=== PATIENT | male | born 1945 | race Caucasian/White ===

== ENCOUNTER 2016-09-02 16:51 | Observation (INO) | payer MEDICARE, OTHER ==
[~2016-09-02] VITALS: Ht 185.4 cm; Wt 110.0 kg
[~2016-09-02 16:51] MED LIST: EZET10 PO; GLUCTAB PO; LISI-587 PO; NEXI40CA PO; PERC5TAB12 PO; PRIS50TA PO
[2016-09-02 17:23] VITALS: BP 150/98; PULSE 99; RESP 16; TEMP 99.3; O2SAT 96
[2016-09-02] MEDS ORDERED: METF500T PO (18:40)
[2016-09-02] MEDS ORDERED: ZETI10TA5 PO (18:40)
[2016-09-02] MEDS ORDERED: LISI20TA3 PO (18:40)
[2016-09-02] MEDS ORDERED: DESV25TA PO (18:40)
[2016-09-02] MEDS ORDERED: SODIUM CHLORIDE 0.9% FLUSH 5 ML FLUSH IVF PRN ×2 (19:30→21:00)
[2016-09-02 19:32] VITALS: O2SAT 97
--- NOTE | 2016-09-02 19:33 | PD ---
HPI Chief Complaint: Fall Time Seen by Provider: 19:19 Travel History International Travel<30 days: No Contact w/Intl Traveler<30days: No Traveled to known affect area: No History of Present Illness HPI 71 year-old male presents to the emergency department by private transportation for evaluation of left rib pain and headache injury status post non-syncopal slip and fall from his porch; does not recall if he was dizzy but no chest pain or shortness of breath. Patient states he was the edge of the upper step of his porch approximately 6 feet off the ground and he lost his balance and fell backwards landing on his left side and then flipping and headaches had on the right forehead area. Patient denies loss of consciousness. Patient denies any neck pain. Patient's had no upper or lower extremity numbness tingling or weakness. Patient denies any abdominal pain pelvic pain or other injury. Patient states the fall was witnessed by his son. Patient states that EMS was called to his home and the patient was assessed with recommendation to be transported to the hospital which initially he refused. Due to persistent discomfort patient was brought to the emergency room by his son who is not present at the bedside. Patient states he takes no blood thinning agents. Patient does have history of diabetes hypertension dyslipidemia COPD kidney stones with lithotripsy renal stents and prior cholecystectomy. Patient does not report any preceding chest pain dizziness palpitations shortness of breath sweats near syncope or syncope. Patient has eaten today and does not recall symptoms of low blood sugar. Patient rates pain with deep inspiratory effort as 8/10 intensity. Patient reports fall occurred around 5 PM. PFSH Past Medical History Narrative Medical Arthritis anxiety depression lymphoma diabetes hypertension dyslipidemia fibromyalgia COPD kidney stones renal stent lithotripsy cholecystectomy occasional alcohol use nursing notes reviewed Arthritis: Yes (RHEUMATOID) Asthma: No Anxiety: Yes Depression: Yes Heart Rhythm Problems: No Cancer: Yes Cardiovascular Problems: Yes High Cholesterol: Yes Chest Pain: No Congestive Heart Failure: No COPD: No Diabetes: Yes (TYPE 2) Patient Takes Glucophage: Yes Diminished Hearing: No Endocrine: Yes Fibromyalgia: Yes GERD: Yes Genitourinary: Yes (KIDNEY STONES) Hepatitis: No Hiatal Hernia: No Hypertension: Yes Immune Disorder: No Implanted Vascular Access Dvce: No Kidney Stones: No Musculoskeletal: Yes Neurologic: No Psychiatric: Yes Reproductive: No Respiratory: Yes (COPD) Immunizations Current: Yes Renal Failure: No Sleep Apnea: No Thyroid Disease: No Past Surgical History Abdominal Surgery: Yes (REBECCA) AICD: No Cholecystectomy: Yes (1988) Ear Surgery: No Endocrine Surgery: No Eye Surgery: No Genitourinary Surgery: Yes (LITHOTRIPSY, SUBCUTANEOUS SURGERY) Gynecologic Surgery: No Joint Replacement: No Neurologic Surgery: No Oral Surgery: No Pacemaker: No Thoracic Surgery: No Other Surgery: Yes (LITHROTRIPSY/KIDNEY STENTS ') Social History Alcohol Use: Yes (RARELY) Tobacco Use: No (quit 5 years ago) Substance Use: No Allergies-Medications (Allergen,Severity, Reaction): Coded Allergies: Amoxicillin (Verified Allergy, Severe, Anaphylaxis, 09/02/16) Bactrim (Verified Allergy, Severe, SWELLING, RED FACE, 09/02/16) Contrast Media (Verified Allergy, Severe, SWELLING, RED FACE, 09/02/16) must be premed with benedryl and solumedrol Codeine (Verified Adverse Reaction, Intermediate, NAUSEA, VOMITING, ) Reported Meds & Prescriptions Reported Meds & Active Scripts Active Reported Metformin (Metformin HCl) 500 Mg Tab Unknown Dose PO BIDPC With meals Pristiq 24 HR (Desvenlafaxine ER 24 HR) 25 Mg Tab Unknown Dose PO DAILY Lisinopril-Hctz 20-25 Mg Tab Unknown Dose PO DAILY Zetia (Ezetimibe) 10 Mg Tab 10 Mg PO DAILY Review of Systems Except as stated in HPI: all other systems reviewed are Neg General / Constitutional: No: Fever, Chills Eyes: No: Visual changes HENT: Positive: Headaches, Lightheadedness, Neck Pain, No: Congestion, Neck Stiffness Cardiovascular: Positive: Chest Pain or Discomfort Respiratory: Positive: Pleuritic Pain, No: Shortness of Breath Gastrointestinal: No: Nausea, Vomiting, Abdominal Pain Genitourinary: No: Flank Pain Musculoskeletal: No: Myalgias, Arthralgias Skin: No Rash Neurologic: Positive: Headache, No: Weakness, Dizziness, Syncope, Focal Abnormalities, Coordination Problem, Ataxia, Change in Mentation, Paresthesia, Incontinence Psychiatric: No: Anxiety Hematologic/Lymphatic: No: Lymph Node Enlargement Physical Exam Narrative GENERAL: Well-developed well-nourished male in no acute distress no respiratory distress; GCS 15. SKIN: Warm and dry. HEAD: Atraumatic. Normocephalic. No scalp soft tissue swelling hematoma or any abnormalities abrasion laceration or ecchymosis. EYES: Pupils equal and round. No scleral icterus. No injection or drainage. Extra ocular muscles intact. ENT: No nasal bleeding or discharge. Mucous membranes pink and moist. No hemotympanum. NECK: Trachea midline. No JVD. Nontender to direct palpation along the cervical spine no bony step-off cervical collar in place CARDIOVASCULAR: Regular rate and rhythm. Chest wall: Tender to palpation along the left midaxillary chest wall without ecchymosis abrasion crepitus or palpable subcutaneous emphysema no ecchymosis no abrasion or laceration. RESPIRATORY: No accessory muscle use. Clear to auscultation. Breath sounds equal bilaterally. GASTROINTESTINAL: Abdomen soft, non-tender, nondistended. Hepatic and splenic margins not palpable. MUSCULOSKELETAL: Extremities without clubbing, cyanosis, or edema. No obvious deformities. NEUROLOGICAL: Awake and alert. No obvious cranial nerve deficits. Motor grossly within normal limits. Five out of 5 muscle strength in the arms and legs. Normal speech. PSYCHIATRIC: Appropriate mood and affect; insight and judgment normal. Data Data Last Documented VS Vital Signs Date Time Temp Pulse Resp B/P Pulse Ox O2 Delivery O2 Flow Rate FiO2 09/02/16 20:01 68 20 178/100 98 09/02/16 19:53 Room Air 09/02/16 17:23 99.3 Orders Basic Metabolic Panel (Bmp) (09/02/16 19:19) Complete Blood Count With Diff (09/02/16 19:19) Prothrombin Time / Inr (Pt) (09/02/16 19:19) Act Partial Throm Time (Ptt) (09/02/16 19:19) Type And Screen (09/02/16 19:19) Alcohol (Ethanol) (09/02/16 19:19) Urinalysis - C+S If Indicated (09/02/16 19:19) Ct Brain W/O Iv Contrast(Rout) (09/02/16 19:19) Ct Cerv Spine W/O Contrast (09/02/16 19:19) Electrocardiogram (09/02/16 19:19) Apply Cervical Collar (09/02/16 19:19) Blood Glucose (09/02/16 19:19) Iv Access Insert/Monitor (09/02/16 19:19) Ecg Monitoring (09/02/16 19:19) Oximetry (09/02/16 19:19) Oxygen Administration (09/02/16 19:19) Sodium Chloride 0.9% Flush (Ns Flush) (09/02/16 19:30) Troponin I (09/02/16 19:19) Ribs, Uni (W/Exp Cxr-Min 3vw) (09/02/16 ) Potassium Chlor 10 Meq Premix (Kcl 10 Me (09/02/16 20:30) Potassium Chloride (Kcl) (09/02/16 20:45) Acetamin-Hydrocod 325-5 Mg ([place] 5-325 (09/02/16 20:45) Sodium Chlor 0.9% 1000 Ml Inj (Ns 1000 M (09/02/16 20:45) Admit Order (Ed Use Only) (09/02/16 ) ^ Saline Lock (09/02/16 20:56) Resp Oxygen [place] C [place]rat 1-4 L (09/02/16 ) ^ Notify Dr: Other (09/02/16 20:56) Sodium Chloride 0.9% Flush (Ns Flush) (09/02/16 21:00) Sodium Chloride 0.9% Flush (Ns Flush) (09/02/16 21:00) Labs Laboratory Tests Test 09/02/16 19:25 White Blood Count 10.0 TH/MM3 Red Blood Count 5.06 MIL/MM3 Hemoglobin 15.0 GM/DL Hematocrit 43.1 % Mean Corpuscular Volume 85.3 FL Mean Corpuscular Hemoglobin 29.7 PG Mean Corpuscular Hemoglobin 34.9 % Concent Red Cell Distribution Width 14.5 % Platelet Count 168 TH/MM3 Mean Platelet Volume 7.7 FL Neutrophils (%) (Auto) 75.2 % Lymphocytes (%) (Auto) 15.4 % Monocytes (%) (Auto) 7.3 % Eosinophils (%) (Auto) 1.6 % Basophils (%) (Auto) 0.5 % Neutrophils # (Auto) 7.5 TH/MM3 Lymphocytes # (Auto) 1.5 TH/MM3 Monocytes # (Auto) 0.7 TH/MM3 Eosinophils # (Auto) 0.2 TH/MM3 Basophils # (Auto) 0.1 TH/MM3 CBC Comment DIFF FINAL Differential Comment Prothrombin Time 10.5 SEC Prothromb Time International 1.0 RATIO Ratio Activated Partial 25.0 SEC Thromboplast Time Sodium Level 141 MEQ/L Potassium Level 2.5 MEQ/L Chloride Level 100 MEQ/L Carbon Dioxide Level 30.9 MEQ/L Anion Gap 10 MEQ/L Blood Urea Nitrogen 16 MG/DL Creatinine 1.20 MG/DL Estimat Glomerular Filtration 60 ML/MIN Rate Random Glucose 113 MG/DL Calcium Level 8.5 MG/DL Troponin I LESS THAN 0.02 NG/ML Ethyl Alcohol Level LESS THAN 3 MG/DL Blood Type O POSITIVE Antibody Screen NEGATIVE MDM Medical Decision Making Medical Screen Exam Complete: Yes Emergency Medical Condition: Yes Medical Record Reviewed: Yes Interpretation(s) EKG: sinus rhythm rate 98 elevation or injury pattern change noted Laboratory Tests Test 09/02/16 19:25 White Blood Count 10.0 TH/MM3 Red Blood Count 5.06 MIL/MM3 Hemoglobin 15.0 GM/DL Hematocrit 43.1 % Mean Corpuscular Volume 85.3 FL Mean Corpuscular Hemoglobin 29.7 PG Mean Corpuscular Hemoglobin 34.9 % Concent Red Cell Distribution Width 14.5 % Platelet Count 168 TH/MM3 Mean Platelet Volume 7.7 FL Neutrophils (%) (Auto) 75.2 % Lymphocytes (%) (Auto) 15.4 % Monocytes (%) (Auto) 7.3 % Eosinophils (%) (Auto) 1.6 % Basophils (%) (Auto) 0.5 % Neutrophils # (Auto) 7.5 TH/MM3 Lymphocytes # (Auto) 1.5 TH/MM3 Monocytes # (Auto) 0.7 TH/MM3 Eosinophils # (Auto) 0.2 TH/MM3 Basophils # (Auto) 0.1 TH/MM3 CBC Comment DIFF FINAL Differential Comment Prothrombin Time 10.5 SEC Prothromb Time International 1.0 RATIO Ratio Activated Partial 25.0 SEC Thromboplast Time Sodium Level 141 MEQ/L Potassium Level 2.5 MEQ/L Chloride Level 100 MEQ/L Carbon Dioxide Level 30.9 MEQ/L Anion Gap 10 MEQ/L Blood Urea Nitrogen 16 MG/DL Creatinine 1.20 MG/DL Estimat Glomerular Filtration 60 ML/MIN Rate Random Glucose 113 MG/DL Calcium Level 8.5 MG/DL Troponin I LESS THAN 0.02 NG/ML Ethyl Alcohol Level LESS THAN 3 MG/DL Last Impressions Head CT 09/02/161918 Signed Impressions: Service Date/Time: August 19:44 - CONCLUSION: No bleed or other acute intracranial abnormality. Vlad eBdoya MD Cervical Spine CT 09/02/16 1919 Signed Impressions: Service Date/Time: August 19:44 - CONCLUSION: Intact cervical spine. Vlad Bedoya MD Ribs X-Ray 09/02/16 0000 Signed Impressions: Service Date/Time: August 19:27 - CONCLUSION: No perceptible acute left rib fracture. No pneumothorax or other acute cardiopulmonary disease. Vlad Bedoya MD Differential Diagnosis ICH, CHI, arrhythmia, chest wall contusion, lung contusion, pneumothorax, hemothorax, rib fracture, ACS, arrhythmia, uncontrolled diabetes, intra- abdominal viscus injury, renal contusion Narrative Course Cervical collar has been applied IV access obtained specimens collected and sent for resulting imaging studies ordered At 8:[address] cervical spine reveals no acute abnormality cervical collar removed by me Patient informed of CT brain CT cervical spine and x-ray of the ribs results which revealed no acute abnormality. CT brain reveals no bleed or skull fracture acute abnormality CT cervical spine reveals significant degenerative changes but no acute bony abnormalities or cord compression and rib series reveals no obvious rib fracture displaced rib fracture or effusion or pneumothorax. &1 year old male with fall from porch unclear if misstepped-does not recall this , dizziness or weakness no chest pain shortness of breath or focal weakness and denies syncope --however with hypokalemia concern for arrhythmia induced fall-- - CT brain/c-spine and rib films w/o acute abnormality --receiving potassium replacement --will obs for cardiac monitoring while potassium replaced Physician Communication Physician Communication case discussed with Kevyn RENTERIA--obs to Dr Shahrzad Diop obs Diagnosis Primary Impression: Hypokalemia Additional Impressions: Contusion of left chest wall Qualified Code: S20.212A - Contusion of left chest wall, initial encounter Fall Qualified Code: W19.XXXA - Fall, initial encounter Admitting Information Admitting Physician Requests: Observation Sharlene Saha MD Sep 02, 2016 19:33 Sharlene Saha MD Sep 02, 2016 19:33
[2016-09-02 19:39] LABS: AUTOMATED NEUTROPHIL # 7.5 TH/MM3 (1.8-7.7); BASOPHIL # 0.1 TH/MM3 (0-0.2); BASOPHIL % 0.5 % (0.0-2.0); EOSINOPHIL # 0.2 TH/MM3 (0-0.4); EOSINOPHIL % 1.6 % (0.0-4.0); HEMATOCRIT 43.1 % (39.0-51.0); HEMO FLAGS DIFF FINAL; LYMPH % 15.4 % (9.0-44.0); LYMPHOCYTE # 1.5 TH/MM3 (1.0-4.8); MEAN CELL VOLUME 85.3 FL (80.0-100.0); MEAN CORPUSCULAR HEMOGLOBIN 29.7 PG (27.0-34.0); MEAN CORPUSCULAR HGB CONC 34.9 % (32.0-36.0); MONO % 7.3 % (0.0-8.0); NEUT % 75.2 % (16.0-70.0); PLATELET COUNT 168 TH/MM3 (150-450); RED BLOOD COUNT 5.06 MIL/MM3 (4.50-5.90); RED CELL DISTRIBUTION WIDTH 14.5 % (11.6-17.2)
--- NOTE | 2016-09-02 19:58 | RADHPO ---
EXAM DATE/TIME: 09/02/2016 19:27 [facility] COMPARISON: RIBS LEFT(W PA CXR MIN 3VWS), November 25, 2015, 17:01. INDICATIONS : Patient states he fell tonight, anterior left side rib pain. MEDICAL HISTORY : Non Hodgkin's disease. SURGICAL HISTORY : [id number] ENCOUNTER: Initial ACUITY: 1 day PAIN SCORE: 8/10 LOCATION: Left Ribs FINDINGS: Multiple views of the left ribs were performed. There is no evidence of displaced fracture. No dest ructive lesions or areas of periosteal thickening are seen. Expiratory view of the chest is negative for pneumothorax. The mediastinal structures are midline. Right internal jugular [id number] catheter are again seen with tip in the superior vena cava. CONCLUSION: No perceptible acute left rib fracture. No pneumothorax or other acute cardiopulmonary disease. Vlad Bedoya MD on September 02, 2016 at 19:56 Board Certified Radiologist. This report was verified electronically.
[2016-09-02 19:59] LABS: PROTHROMBIN TIME - PATIENT 10.5 SEC (9.8-11.6)
[2016-09-02 20:01] VITALS: BP 178/100; PULSE 68; RESP 20; O2SAT 98
[2016-09-02 20:14] LABS: ANION GAP 10 MEQ/L (5-15); BICARBONATE 30.9 MEQ/L (21.0-32.0); BLOOD UREA NITROGEN 16 MG/DL (7-18); CHLORIDE 100 MEQ/L (98-107); GLOMERULAR FILTRATION RATE 60 ML/MIN (>89); SODIUM (NA) 141 MEQ/L (136-145)
[2016-09-02 20:15] LABS: POTASSIUM 2.5 MEQ/L (3.5-5.1)
--- NOTE | 2016-09-02 20:28 | RADHPO ---
EXAM DATE/TIME: 09/02/2016 19:44 [facility] COMPARISON: CT CERVICAL SPINE W/O CONTRAST, January 24, 2015, 22:13. INDICATIONS : Trauma. Fall. RADIATION DOSE: 26.78 CTDIvol (mGy) MEDICAL HISTORY : Diabetes mellitus type 2. Hypertension. Chronic obstructive pulmonary disease. SURGICAL HISTORY : None. ENCOUNTER: Initial ACUITY: 1 day PAIN SCALE: 0/10 LOCATION: neck TECHNIQUE: Volumetric scanning of the cervical spine was performed. Multiplanar reconstructions in the sagittal, coronal and oblique axial planes were performed. Using automated exposure control and adjustment o f the mA and/or kV according to patient size, radiation dose was kept as low as reasonably achievable to obtain optimal diagnostic quality images. FINDINGS: No fracture or subluxation of the cervical spine. Vertebral bodies have normal height. Mild disc space narrowing with mild uncovertebral and facet osteoarthritis again seen at C5/C6, C6/C7 and C7/T1. Juxtavertebral soft tissues are within normal limits. No evidence of epidural hematoma. CONCLUSION: Intact cervical spine. Vlad Bedoya MD on September 02, 2016 at 20:25 Board Certified Radiologist. This report was verified electronically.
--- NOTE | 2016-09-02 20:29 | RADHPO ---
EXAM DATE/TIME: 09/02/2016 19:44 [facility] COMPARISON: CT BRAIN W/O CONTRAST, January 24, 2015, 22:13. INDICATIONS : Trauma. Fall. RADIATION DOSE: 66.14 CTDIvol (mGy) MEDICAL HISTORY : Hypertension. Diabetes mellitus type 2. Chronic obstructive pulmonary disease. SURGICAL HISTORY : None. ENCOUNTER: Initial ACUITY: 1 day PAIN SCALE: 8/10 LOCATION: Left parietal TECHNIQUE: Multiple contiguous axial images were obtained of the head. Using automated exposure control and adj ustment of the mA and/or kV according to patient size, radiation dose was kept as low as reasonably a chievable to obtain optimal diagnostic quality images. FINDINGS: CEREBRUM: The ventricles are normal for age. No evidence of midline shift, mass lesion, hemorrhage or acute in farction. No extra-axial fluid collections are seen. POSTERIOR FOSSA: The cerebellum and brainstem are intact. The 4th ventricle is midline. The cerebellopontine angle i s unremarkable. EXTRACRANIAL: The visualized portion of the orbits is intact. SKULL: The calvaria is intact. No evidence of skull fracture. CONCLUSION: No bleed or other acute intracranial abnormality. Vlad Bedoya MD on September 02, 2016 at 20:27 Board Certified Radiologist. This report was verified electronically.
[2016-09-02] MEDS ORDERED: POTASSIUM CHLOR 10 MEQ PREMIX 100 ML IV ONE (20:30)
[2016-09-02] MEDS ORDERED: POTASSIUM CHLORIDE 20 MEQ CONTROLLED RELEASE TAB PO ONE (20:45)
[2016-09-02] MEDS ORDERED: SODIUM CHLOR 0.9% 1000 ML INJ 1,000 ML IV SCH ×2 (20:45→21:03)
[2016-09-02] MEDS ORDERED: ACETAMINOPHEN/HYDROcodone 325 MG/5 MG TAB PO ONE (20:45)
[2016-09-02] MEDS ORDERED: SODIUM CHLORIDE 0.9% FLUSH 5 ML FLUSH IVF SCH (21:00)
[2016-09-02] MEDS ORDERED: NALOXONE HCL 0.4 MG/ML AMP IV PRN (21:15)
[2016-09-02] MEDS ORDERED: SODIUM CHLORIDE 0.9% FLUSH 5 ML FLUSH FLUSH PRN (21:15)
[2016-09-02] MEDS ORDERED: ACETAMINOPHEN 325 MG TAB PO PRN (21:15)
[2016-09-02] MEDS ORDERED: ONDANSETRON HCL 4 MG/2 ML VIAL IVP PRN (21:15)
[2016-09-02 21:38] VITALS: BP 214/113; PULSE 96; RESP 18; O2SAT 96
[2016-09-02] MEDS ORDERED: ENALAPRILAT 1.25 MG/ML VIAL IV PUSH ONE (22:00)
[2016-09-02 22:25] VITALS: BP 191/110
[2016-09-02 22:51] VITALS: BP 154/102; PULSE 92; RESP 18
[2016-09-03] MEDS ORDERED: SODIUM CHLORIDE 0.9% FLUSH 5 ML FLUSH FLUSH SCH (09:00)
--- NOTE | 2016-09-03 22:48 | EKG ---
Date Performed: 09/02/2016 Time Performed: 20:01:58 PTAGE: 71 years EKG: Sinus rhythm with PACs. Left axis deviation Possible left ventricular hypertrophy Anterolateral ST-T changes are probably due to ventricular hypertrophy Abnormal ECG PREVIOUS TRACING : 01/24/2015 23.41 DOCTOR: Hunter Mittal Interpretating Date/Time 09/03/2016 22:44:40
== END 2016-09-02 23:00 | disposition left against medical advice (07) ==
LOC: PHED 16:51 → PHEDA 20:57
PROVIDERS: ADMIT Family Medicine; ATTEND Family Medicine
DX: E87.6 Hypokalemia (principal); S20.212A Contusion of left front wall of thorax, initial encounter; R51 Headache; I10 Essential (primary) hypertension; E11.9 Type 2 diabetes mellitus without complications; E78.00 Pure hypercholesterolemia, unspecified; E78.5 Hyperlipidemia, unspecified; M06.9 Rheumatoid arthritis, unspecified; F41.8 Other specified anxiety disorders; M79.7 Fibromyalgia; J44.9 Chronic obstructive pulmonary disease, unspecified; W10.8XXA Fall (on) (from) other stairs and steps, initial encounter; Y92.007 Garden or yard of unspecified non-institutional (private) residence as the place of occurrence of the external cause; Z85.9 Personal history of malignant neoplasm, unspecified; Z87.891 Personal history of nicotine dependence; R94.31 Abnormal electrocardiogram [ECG] [EKG]
CPT/HCPCS: 70450; 71101; 72125; 80048; 80320; 84484; 85025; 85610; 85730; 86850; 86900; 86901; 93005; 96374; 96375; 99285; G0378; J3480; J7030

== ENCOUNTER 2016-10-02 17:58 | Emergency (ER) | payer MEDICARE, OTHER ==
[~2016-10-02] VITALS: Ht 185.4 cm; Wt 108.8 kg
[~2016-10-02 17:58] MED LIST changes: +DESV25TA PO; -EZET10 PO; -GLUCTAB PO; -LISI-587 PO; +LISI20TA3 PO; +METF500T PO; -NEXI40CA PO; -PERC5TAB12 PO; -PRIS50TA PO; +ZETI10TA5 PO
[2016-10-02 18:02] VITALS: BP 160/102; PULSE 98; RESP 20; O2SAT 96
[2016-10-02] MEDS ORDERED: SODIUM CHLOR 0.9% 1000 ML INJ 1,000 ML IV SCH (18:27)
[2016-10-02] MEDS ORDERED: MORPHINE SULFATE 4 MG/ML INJ IV PUSH ONE (18:30)
[2016-10-02] MEDS ORDERED: SODIUM CHLORIDE 0.9% FLUSH 5 ML FLUSH IVF PRN (18:30)
--- NOTE | 2016-10-02 18:34 | PD ---
HPI Chief Complaint: Flank/Kidney Pain Time Seen by Provider: 18:15 Travel History International Travel<30 days: No Contact w/Intl Traveler<30days: No Traveled to known affect area: No History of Present Illness HPI Patient is a 71-year-old male who presents to emergency room with complaints of right-sided flank pain which radiates to his right going. Patient reports that he has been having symptoms since last night, reports that these symptoms are intermittent in nature. Patient reports that he has history of kidney stones in the past, reports that symptoms today feel exactly similar to when he has had his prior stones. Patient reports that he has noticed increased hematuria, dysuria, urinary urgency and frequency. Patient with no fevers or chills. Patient denies nausea or vomiting. Reports that he has had increased symptoms tonight. Patient reports that he has passed kidney stones in the past; he has also required urological intervention for his stones PFSH Past Medical History Hx Anticoagulant Therapy: No Arthritis: Yes (RHEUMATOID) Asthma: No Anxiety: Yes Depression: Yes Heart Rhythm Problems: No Cancer: Yes Cardiovascular Problems: Yes (HTN, CHOL) High Cholesterol: Yes Chest Pain: No Congestive Heart Failure: No COPD: No Diabetes: Yes Patient Takes Glucophage: Yes (METFORMIN) Diminished Hearing: No Endocrine: Yes Fibromyalgia: Yes GERD: Yes Genitourinary: Yes (KIDNEY STONES) Hepatitis: No Hiatal Hernia: No Hypertension: Yes Immune Disorder: No Implanted Vascular Access Dvce: No Kidney Stones: No Musculoskeletal: Yes Neurologic: No Psychiatric: Yes Reproductive: No Respiratory: Yes (COPD) Immunizations Current: Yes Renal Failure: No Sleep Apnea: No Thyroid Disease: No Influenza Vaccination: Yes Past Surgical History Abdominal Surgery: Yes (REBECCA) AICD: No Cholecystectomy: Yes (1988) Ear Surgery: No Endocrine Surgery: No Eye Surgery: No Genitourinary Surgery: Yes (LITHOTRIPSY, SUBCUTANEOUS SURGERY) Gynecologic Surgery: No Joint Replacement: No Neurologic Surgery: No Oral Surgery: No Pacemaker: No Thoracic Surgery: No Tonsillectomy: Yes Other Surgery: Yes (LITHROTRIPSY/KIDNEY STENTS ') Social History Alcohol Use: Yes (RARELY) Tobacco Use: No (quit 5 years ago) Substance Use: No Allergies-Medications (Allergen,Severity, Reaction): Coded Allergies: Amoxicillin (Verified Allergy, Severe, Anaphylaxis, 10/02/16) Bactrim (Verified Allergy, Severe, SWELLING, RED FACE, 10/02/16) Contrast Media (Verified Allergy, Severe, SWELLING, RED FACE, 10/02/16) must be premed with benedryl and solumedrol Codeine (Verified Adverse Reaction, Intermediate, NAUSEA, VOMITING, ) Reported Meds & Prescriptions Reported Meds & Active Scripts Active Reported Metformin (Metformin HCl) 500 Mg Tab Unknown Dose PO DAILY With meals Pristiq 24 HR (Desvenlafaxine ER 24 HR) 25 Mg Tab Unknown Dose PO DAILY Lisinopril-Hctz 20-25 Mg Tab Unknown Dose PO DAILY Zetia (Ezetimibe) 10 Mg Tab 10 Mg PO DAILY Review of Systems General / Constitutional: No: Fever Eyes: No: Visual changes HENT: No: Headaches Cardiovascular: No: Chest Pain or Discomfort Respiratory: No: Shortness of Breath Gastrointestinal: Positive: Other (right-sided flank pain), No: Nausea, Vomiting, Abdominal Pain Genitourinary: Positive: Urgency, Frequency, Dysuria, Hematuria, Hesitancy Musculoskeletal: No: Pain Skin: No Rash Neurologic: No: Weakness Psychiatric: No: Depression Endocrine: No: Polydipsia Hematologic/Lymphatic: No: Easy Bruising Physical Exam Narrative GENERAL: No acute distress, nontoxic SKIN: Warm and dry. HEAD: Atraumatic. Normocephalic. ENT: No nasal bleeding or discharge. Mucous membranes pink and moist. NECK: Trachea midline. No JVD. CARDIOVASCULAR: Regular rate and rhythm. No murmur appreciated. RESPIRATORY: No accessory muscle use. Clear to auscultation. Breath sounds equal bilaterally. GASTROINTESTINAL: Abdomen soft, non-tender, nondistended. Patient with right- sided flank pain MUSCULOSKELETAL: No obvious deformities. No clubbing. No cyanosis. No edema. NEUROLOGICAL: Awake and alert. No obvious cranial nerve deficits. Motor grossly within normal limits. Normal speech. PSYCHIATRIC: Appropriate mood and affect; insight and judgment normal. Data Data Last Documented VS Vital Signs Date Time Temp Pulse Resp B/P Pulse Ox O2 Delivery O2 Flow Rate FiO2 10/02/16 18:02 98 20 160/102 96 Orders Complete Blood Count With Diff (10/02/16 18:27) Comprehensive Metabolic Panel (10/02/16 18:27) Lipase (10/02/16 18:27) Prothrombin Time / Inr (Pt) (10/02/16 18:27) Act Partial Throm Time (Ptt) (10/02/16 18:) Urinalysis - C+S If Indicated (10/02/16:) Ct Abd/Pel W/O Iv Contrast (10/02/16 18:) Iv Access Insert/Monitor (10/02/16 18:) Morphine Inj (Morphine Inj) (10/02/16 18:30) Sodium Chlor 0.9% 1000 Ml Inj (Ns 1000 M (10/02/16 18:) Sodium Chloride 0.9% Flush (Ns Flush) (10/02/16 18:30) MDM Medical Decision Making Medical Screen Exam Complete: Yes Emergency Medical Condition: Yes Interpretation(s) Vital Signs Date Time Temp Pulse Resp B/P Pulse Ox O2 Delivery O2 Flow Rate FiO2 10/02/16 18:02 98 20 160/102 96 Differential Diagnosis Nephrolithiasis, pyelonephritis, cystitis Narrative Course Patient is a 71-year-old male who presents to emergency room with complaints of right-sided flank pain which radiates to his groin. Patients symptoms have been intermittent since last night, reports that symptoms are getting progressively worse. Patient reports history of kidney stones in the past, reports the symptoms feel exactly the same as when he has had his previous kidney stones. Labs, UA, CAT scan the abdomen pelvis without IV contrast ordered for further evaluation symptoms. Will give patient IV fluids as well as morphine for pain. Patient has tolerated morphine in the past. Care of patient signed out to care of Dr. Raymond at change of shift Anita Lewis DO Oct 02, 2016 18:34
[2016-10-02 18:48] LABS: BASOPHIL % 0.4 % (0.0-2.0); EOSINOPHIL # 0.1 TH/MM3 (0-0.4); EOSINOPHIL % 1.9 % (0.0-4.0); HEMATOCRIT 38.4 % (39.0-51.0); HEMO FLAGS DIFF FINAL; LYMPH % 17.5 % (9.0-44.0); MEAN CELL VOLUME 87.5 FL (80.0-100.0); MEAN CORPUSCULAR HGB CONC 34.3 % (32.0-36.0); MONO % 8.9 % (0.0-8.0); NEUT % 71.3 % (16.0-70.0); PLATELET COUNT 143 TH/MM3 (150-450); RED BLOOD COUNT 4.39 MIL/MM3 (4.50-5.90); RED CELL DISTRIBUTION WIDTH 14.1 % (11.6-17.2); WHITE BLOOD COUNT 5.6 TH/MM3 (4.0-11.0)
[2016-10-02 18:59] LABS: CHLORIDE 105 MEQ/L (98-107); SODIUM (NA) 143 MEQ/L (136-145)
[2016-10-02 19:03] LABS: ANION GAP 10 MEQ/L (5-15); APTT (PATIENT) 25.3 SEC (24.3-30.1); BICARBONATE 27.7 MEQ/L (21.0-32.0); INTERNATIONAL NORMALIZED RATIO 0.9 RATIO; PROTHROMBIN TIME - PATIENT 10.4 SEC (9.8-11.6)
[2016-10-02 19:04] LABS: BLOOD UREA NITROGEN 12 MG/DL (7-18)
[2016-10-02 19:06] LABS: ALT (GPT) 19 U/L (12-78); AST (GOT) 11 U/L (15-37)
[2016-10-02 19:07] LABS: GLOMERULAR FILTRATION RATE 60 ML/MIN (>89)
[2016-10-02 19:08] LABS: TOTAL BILIRUBIN ADULT 0.4 MG/DL (0.2-1.0)
[2016-10-02 19:09] LABS: ALKALINE PHOSPHATASE 82 U/L (45-117)
[2016-10-02 19:34] LABS: GLUCOSE,URINE NEG (NEG); KETONE, URINE NEG (NEG); NITRITE,URINE NEG (NEG)
--- NOTE | 2016-10-02 19:34 | RADHPO ---
EXAM DATE/TIME: 10/02/2016 18:49 [facility] COMPARISON: No previous studies available for comparison. INDICATIONS : Right flank pain since last night. ORAL CONTRAST: No oral contrast ingested. RADIATION DOSE: 24.85 CTDIvol (mGy) MEDICAL HISTORY : Renal calculi. diabetes SURGICAL HISTORY : Cholecystectomy. litotripsy, kidney stent placement ENCOUNTER: Initial ACUITY: 1 day PAIN SCALE: 8/10 LOCATION: Right flank TECHNIQUE: Volumetric scanning of the abdomen and pelvis was performed. Using automated exposure control and ad justment of the mA and/or kV according to patient size, radiation dose was kept as low as reasonably achievable to obtain optimal diagnostic quality images. FINDINGS: Lung bases are clear. No acute findings in the liver, spleen, adrenals, kidneys or pancreas. Tiny rosi ateral nonobstructing renal calcifications again noted similar to 2014. No hydronephrosis or obstruct linda uropathy. No ureteral or bladder calculi are seen. There is no bowel obstruction. No free air or free fluid. No adenopathy. Postoperative cholecystectom y. CONCLUSION: 1. No acute findings. Tiny nonobstructing bilateral renal calcifications similar to prior study. Prev ious cholecystectomy. Andrea Gallardo MD on October 02, 2016 at 19:27 Board Certified Radiologist. This report was verified electronically.
[2016-10-02 19:53] LABS: BLOOD, URINE MOD (NEG)
[2016-10-02 20:04] LABS: METHOD OF COLLECTION VOIDED; URINE COLOR STRAW (YELLW/STRAW); WBC, URINE 0-2 /hpf (0-5)
[2016-10-02 20:05] LABS: COMMENT (UR) CULT NOT INDICATED; CULTURE IF INDICATED CULT NOT INDICATED; RBC, URINE 15-19 /hpf (0-3); SQUAMOUS EPITHELIAL CELL URINE 0-3 /hpf (0-5)
[2016-10-02] MEDS ORDERED: POTASSIUM CHLORIDE 20 MEQ CONTROLLED RELEASE TAB PO ONE (20:30)
[2016-10-02] MEDS ORDERED: ZOFR4TAB PO (20:33)
[2016-10-02] MEDS ORDERED: CIPR-9 PO (20:33)
[2016-10-02] MEDS ORDERED: HYDR-3533 PO (20:33)
--- NOTE | 2016-10-02 20:34 | PD ---
Physical Exam Time Seen by Provider: 20:[address] Lewis left this patient with me to check the CT scan of the abdomen/pelvis and make a disposition. Data Data Last Documented VS Vital Signs Date Time Temp Pulse Resp B/P Pulse Ox O2 Delivery O2 Flow Rate FiO2 10/02/16 20:08 18 10/02/16 18:02 98 160/102 96 Orders Complete Blood Count With Diff (10/02/16 18:) Comprehensive Metabolic Panel (10/02/16 18:) Lipase (10/02/16 18:) Prothrombin Time / Inr (Pt) (10/02/16:) Act Partial Throm Time (Ptt) (10/02/16 18:) Urinalysis - C+S If Indicated (10/02/16) Ct Abd/Pel W/O Iv Contrast (10/02/16 18:27) Iv Access Insert/Monitor (10/02/16 18:27) Morphine Inj (Morphine Inj) (10/02/16 18:30) Sodium Chlor 0.9% 1000 Ml Inj (Ns 1000 M (10/02/16 18:27) Sodium Chloride 0.9% Flush (Ns Flush) (10/02/16 18:30) Potassium Chloride (Kcl) (10/02/16 20:30) Labs Laboratory Tests Test 10/02/16 10/02/16 18:35 19:25 White Blood Count 5.6 TH/MM3 Red Blood Count 4.39 MIL/MM3 Hemoglobin 13.2 GM/DL Hematocrit 38.4 % Mean Corpuscular Volume 87.5 FL Mean Corpuscular Hemoglobin 30.0 PG Mean Corpuscular Hemoglobin 34.3 % Concent Red Cell Distribution Width 14.1 % Platelet Count 143 TH/MM3 Mean Platelet Volume 7.7 FL Neutrophils (%) (Auto) 71.3 % Lymphocytes (%) (Auto) 17.5 % Monocytes (%) (Auto) 8.9 % Eosinophils (%) (Auto) 1.9 % Basophils (%) (Auto) 0.4 % Neutrophils # (Auto) 4.0 TH/MM3 Lymphocytes # (Auto) 1.0 TH/MM3 Monocytes # (Auto) 0.5 TH/MM3 Eosinophils # (Auto) 0.1 TH/MM3 Basophils # (Auto) 0.0 TH/MM3 CBC Comment DIFF FINAL Differential Comment Prothrombin Time 10.4 SEC Prothromb Time International 0.9 RATIO Ratio Activated Partial 25.3 SEC Thromboplast Time Sodium Level 143 MEQ/L Potassium Level 3.0 MEQ/L Chloride Level 105 MEQ/L Carbon Dioxide Level 27.7 MEQ/L Anion Gap 10 MEQ/L Blood Urea Nitrogen 12 MG/DL Creatinine 1.20 MG/DL Estimat Glomerular Filtration 60 ML/MIN Rate Random Glucose 170 MG/DL Calcium Level 8.3 MG/DL Total Bilirubin 0.4 MG/DL Aspartate Amino Transf 11 U/L (AST/SGOT) Alanine Aminotransferase 19 U/L (ALT/SGPT) Alkaline Phosphatase 82 U/L Total Protein 6.6 GM/DL Albumin 3.2 GM/DL Lipase 161 U/L Urine Collection Type VOIDED Urine Color STRAW Urine Turbidity CLEAR Urine pH 6.0 Urine Specific [place] 1.016 Urine Protein 100 mg/dL Urine Glucose (UA) NEG mg/dL Urine Ketones NEG mg/dL Urine Occult Blood MOD Urine Nitrite NEG Urine Bilirubin NEG Urine Leukocyte Esterase NEG Urine RBC 15-19 /hpf Urine WBC 0-2 /hpf Urine Squamous Epithelial 0-3 /hpf Cells Microscopic Urinalysis Comment CULT NOT INDICATED MDM Medical Record Reviewed: Yes Supervised Visit with MISHEL: Yes Interpretation(s) The CBC is essentially normal. The urine shows 100 protein, moderate occult blood with 15-19 red cells and is otherwise normal and culture is not indicated. The complete metabolic profile shows a potassium of 3.0, GFR of 60, glucose 170, calcium 8.3 and albumen 3.2 but is otherwise unremarkable. The lipase is normal. The CT abdomen and pelvis shows no acute findings, there are tiny nonobstructing bilateral renal calcifications similar to a prior study. Differential Diagnosis Urinary tract infection, right ureteral stone, right ureteral stonepassed Narrative Course The patient feels that he has an infection. He does have dysuria and frequency. The patient will be given Cipro along with Lortab 5 and Zofran. He is to follow-up with his primary care physician. It is now 0828 and the patient does not feel any pain. Impressions: Right ureteral stonepassed, possible cystitis Diagnosis Primary Impression: Cystitis Additional Impression: Right ureteral stone Additional Instruction: You probably have had a stone that he passed. Nevertheless, we will put him on Cipro, one tablet twice daily for 10 days. We will also give you Lortab 5 for pain along with Zofran for nausea. Do not drink alcohol or drive on the Lortab 5. Follow-up with your primary care physician next week and increase her liquid intake. Med/Other Pt SpecificInfo: Prescription(s) given Scripts Ciprofloxacin (Cipro)500 Mg [id number] Mg PO BID 10 Days Ref 0 Prov:Cameron Raymond MD 10/02/16 Ondansetron (Zofran)4 Mg Tab4 Mg PO Q6HR PRN (NAUSEA OR VOMITING) #20 TAB Ref 0 Prov:Cameron Raymond MD 10/02/16 Hydrocodone-Acetaminophen (Lortab)5-325 Mg Tab1 Tab PO Q4H PRN (PAIN) #20 TAB Ref 0 Prov:Cameron Raymond MD 10/02/16 Disposition: 01 DISCHARGE HOME Condition: Stable Cameron Raymond MD Oct 02, 2016 20:34
[2016-10-02 20:38] VITALS: BP 184/93; PULSE 92; RESP 16; O2SAT 95
== END 2016-10-02 20:50 | disposition home or self-care (01) ==
LOC: PHEFT 17:58
DX: N30.90 Cystitis, unspecified without hematuria (principal); N20.1 Calculus of ureter; F41.9 Anxiety disorder, unspecified; I10 Essential (primary) hypertension; E78.00 Pure hypercholesterolemia, unspecified; E11.9 Type 2 diabetes mellitus without complications; Z79.4 Long term (current) use of insulin
CPT/HCPCS: 74176; 80053; 81001; 83690; 85025; 85610; 85730; 96361; 96374; 99284; J2270; J7030

== ENCOUNTER 2017-03-08 16:21 | Inpatient (IN) | payer MEDICARE, OTHER ==
[2017-03-08] VITALS (12 sets, daily range): BP systolic 78–146; BP diastolic 56–89; PULSE 90–128; RESP 18–22; TEMP 97.7–98.8; O2SAT 93–98
[~2017-03-08] VITALS: Ht 188 cm; Wt 115.4 kg
[~2017-03-08 16:21] MED LIST changes: +CIPR-9 PO; +HYDR-3533 PO; +ZOFR4TAB PO
[2017-03-08] MEDS ORDERED: PANTOPRAZOLE SODIUM 40 MG VIAL IVP ONE (16:45)
[2017-03-08] MEDS ORDERED: SODIUM CHLORIDE 0.9% FLUSH 10 ML FLUSH IVF PRN (16:45)
[2017-03-08] MEDS ORDERED: ONDANSETRON HCL 4 MG/2 ML VIAL IVP ONE (16:45)
[2017-03-08] MEDS ORDERED: SODIUM CHLOR 0.9% 1000 ML INJ 1,000 ML IV ONE (16:45)
[2017-03-08] MEDS ORDERED: POTA-163 PO (16:52)
--- NOTE | 2017-03-08 16:56 | PD ---
HPI . Chest pain Chief Complaint: Chest Pain Time Seen by Provider: 16:35 Travel History International Travel<30 days: No Contact w/Intl Traveler<30days: No Traveled to known affect area: No History of Present Illness HPI Patient presents with a chief complaint of chest pain. Onset was about 30 minutes ago. He describes his chest pain as a thumping patient. Symptoms started while he was shopping for a [employer]. He states that his symptoms are spontaneously improving. His symptoms have been associated with shortness of breath and diaphoresis but no nausea. Discomfort is rated 8/10. The patient denies any recent illnesses involving vomiting or diarrhea. He has not noted any blood in his stool. PFSH Past Medical History Hx Anticoagulant Therapy: No Arthritis: Yes (RHEUMATOID) Asthma: No Anxiety: Yes Depression: Yes Heart Rhythm Problems: No Cancer: Yes Cardiovascular Problems: Yes (HTN, CHOL) High Cholesterol: Yes Chest Pain: No Congestive Heart Failure: No COPD: No Diabetes: Yes Diminished Hearing: No Endocrine: Yes Fibromyalgia: Yes GERD: Yes Genitourinary: Yes (KIDNEY STONES) Hepatitis: No Hiatal Hernia: No Hypertension: Yes Immune Disorder: No Implanted Vascular Access Dvce: No Kidney Stones: No Musculoskeletal: Yes Neurologic: No Psychiatric: Yes Reproductive: No Respiratory: Yes (COPD) Immunizations Current: Yes Renal Failure: No Sleep Apnea: No Thyroid Disease: No Past Surgical History Abdominal Surgery: Yes (REBECCA) AICD: No Cholecystectomy: Yes (1988) Ear Surgery: No Endocrine Surgery: No Eye Surgery: No Genitourinary Surgery: Yes (LITHOTRIPSY, SUBCUTANEOUS SURGERY) Gynecologic Surgery: No Joint Replacement: No Neurologic Surgery: No Oral Surgery: No Pacemaker: No Thoracic Surgery: No Tonsillectomy: Yes Other Surgery: Yes (LITHROTRIPSY/KIDNEY STENTS ) Social History Alcohol Use: Yes (RARELY) Tobacco Use: No (quit 5 years ago) Substance Use: No Allergies-Medications (Allergen,Severity, Reaction): Coded Allergies: Amoxicillin (Verified Allergy, Severe, Anaphylaxis, 10/02/16) Bactrim (Verified Allergy, Severe, SWELLING, RED FACE, 10/02/16) Contrast Media (Verified Allergy, Severe, SWELLING, RED FACE, 10/02/16) must be premed with benedryl and solumedrol Codeine (Verified Adverse Reaction, Intermediate, NAUSEA, VOMITING, ) Reported Meds & Prescriptions Reported Meds & Active Scripts Active Reported Potassium Chloride ER (Potassium Chloride) 20 Meq Tab 20 Meq PO BID Metformin (Metformin HCl) 500 Mg Tab Unknown Dose PO DAILY With meals Pristiq 24 HR (Desvenlafaxine ER 24 HR) 25 Mg Tab Unknown Dose PO DAILY Lisinopril-Hctz 20-25 Mg Tab Unknown Dose PO DAILY Zetia (Ezetimibe) 10 Mg Tab 10 Mg PO DAILY Review of Systems Except as stated in HPI: all other systems reviewed are Neg General / Constitutional: Positive: Other (diaphoresis) Cardiovascular: Positive: Chest Pain or Discomfort, Palpitations Respiratory: Positive: Shortness of Breath Gastrointestinal: No: Nausea, Vomiting, Diarrhea, Abdominal Pain Physical Exam Narrative GENERAL: Patient is pale and diaphoretic. He is lucid. SKIN: Pale and diaphoretic.. HEAD: Atraumatic. Normocephalic. EYES: Pupils equal and round. Extraocular movements are intact. ENT: No nasal bleeding or discharge. Mucous membranes pink and moist. NECK: Trachea midline. Neck is supple. CARDIOVASCULAR: Regular rhythm. Tachycardia. Monitor and EKG indicated a sinus tachycardia. RESPIRATORY: No accessory muscle use. His lungs sound clear. GASTROINTESTINAL: Abdomen soft, non-tender, nondistended. No pulsatile abdominal mass. RECTAL: Brown stool with no mass palpated. MUSCULOSKELETAL: No obvious deformities. No edema. NEUROLOGICAL: Awake and alert. No obvious cranial nerve deficits. Motor grossly within normal limits. Normal speech. PSYCHIATRIC: Appropriate mood and affect; insight and judgment normal. Data Data Last Documented VS Vital Signs Date Time Temp Pulse Resp B/P Pulse Ox O2 Delivery O2 Flow Rate FiO2 03/08/17 18:16 106 20 107/65 96 Nasal Cannula 2 03/08/17 17:46 97.7 Orders Electrocardiogram (03/08/17 16:35) Ckmb (Isoenzyme) Profile (03/08/17 16:35) Complete Blood Count With Diff (03/08/17 16:35) Comprehensive Metabolic Panel (03/08/17 16:35) D-Dimer (03/08/17 16:35) Magnesium (Mg) (03/08/17 16:35) Prothrombin Time / Inr (Pt) (03/08/17 16:35) Act Partial Throm Time (Ptt) (03/08/17 16:35) Troponin I (03/08/17 16:35) Chest, Single Ap (03/08/17 16:35) Ecg Monitoring (03/08/17 16:35) Iv Access Insert/Monitor (03/08/17 16:35) Oximetry (03/08/17 16:35) Oxygen Administration (03/08/17 16:35) Sodium Chloride 0.9% Flush (Ns Flush) (03/08/17 16:45) Sodium Chlor 0.9% 1000 Ml Inj (Ns 1000 M (03/08/17 16:45) Type And Screen (03/08/17 16:44) Ondansetron Inj (Zofran Inj) (03/08/17 16:45) Pantoprazole Inj (Protonix Inj) (03/08/17 16:45) Ct Abd/Pel W/O Iv Contrast (03/08/17 16:44) Sodium Chlor 0.9% 1000 Ml Inj (Ns 1000 M (03/08/17 17:15) Lactic Acid (03/08/17 18:44) Admit Order (Ed Use Only) (03/08/17 18:45) Consult Grant Administrator (03/08/17 ) Consult Gastroenterology (03/08/17 ) Labs Laboratory Tests Test 03/08/17 14:30 White Blood Count 10.7 TH/MM3 Red Blood Count 5.18 MIL/MM3 Hemoglobin 15.0 GM/DL Hematocrit 45.8 % Mean Corpuscular Volume 88.5 FL Mean Corpuscular Hemoglobin 29.0 PG Mean Corpuscular Hemoglobin 32.8 % Concent Red Cell Distribution Width 15.5 % Platelet Count 123 TH/MM3 Mean Platelet Volume 8.8 FL Neutrophils (%) (Auto) 64.5 % Lymphocytes (%) (Auto) 23.6 % Monocytes (%) (Auto) 8.3 % Eosinophils (%) (Auto) 1.4 % Basophils (%) (Auto) 2.2 % Neutrophils # (Auto) 7.0 TH/MM3 Lymphocytes # (Auto) 2.5 TH/MM3 Monocytes # (Auto) 0.9 TH/MM3 Eosinophils # (Auto) 0.1 TH/MM3 Basophils # (Auto) 0.2 TH/MM3 CBC Comment AUTO DIFF Differential Comment AUTO DIFF CONFIRMED Prothrombin Time 10.1 SEC Prothromb Time International 0.9 RATIO Ratio Activated Partial 20.8 SEC Thromboplast Time D-Dimer Quantitative (PE/DVT) 0.40 MG/L FEU Sodium Level 140 MEQ/L Potassium Level 4.2 MEQ/L Chloride Level 107 MEQ/L Carbon Dioxide Level 21.4 MEQ/L Anion Gap 12 MEQ/L Blood Urea Nitrogen 27 MG/DL Creatinine 2.10 MG/DL Estimat Glomerular Filtration 31 ML/MIN Rate Random Glucose 167 MG/DL Calcium Level 9.3 MG/DL Magnesium Level 1.9 MG/DL Total Bilirubin 0.5 MG/DL Aspartate Amino Transf 19 U/L (AST/SGOT) Alanine Aminotransferase 38 U/L (ALT/SGPT) Alkaline Phosphatase 61 U/L Total Creatine Kinase 35 U/L Troponin I LESS THAN 0.02 NG/ML Total Protein 7.6 GM/DL Albumin 4.0 GM/DL MDM Medical Decision Making Medical Screen Exam Complete: Yes Emergency Medical Condition: Yes Medical Record Reviewed: Yes (this patient's medical history includes hypertension, diabetes, hyperlipidemia, episodic atrial fibrillation, COPD and lymphoma. He received his last chemotherapy treatment 2 weeks ago. No more chemotherapy is planned.) Interpretation(s) EKG shows sinus tachycardia with no ST segment elevation or depression. Differential Diagnosis Differential diagnosis of tachycardia includes but is not limited to PSVT, atrial fibrillation with a rapid ventricular response, sinus tachycardia (due to hypovolemia, anemia, thyrotoxicosis, PE) Narrative Course This patient presents with the chief complaint of chest discomfort which he describes as a thumping sensation in his chest. He was found to be tachycardic and hypotensive on arrival. An IV was started and he is receiving bolus fluid. His vital signs were monitored frequently. He is being evaluated for ACS. However, the more likely diagnosis is GI bleed causing his hypotension and tachycardia. 6:00 PM The patient remains hypotensive following 1-1/2 L. He reports that he feels markedly better. CBC & BMP Diagram 03/08/17 14:30 LFTs are normal. Cardiac enzymes are normal. D-dimer is normal. Coags are normal. CXR: A single view of the chest demonstrates the lungs to be symmetrically aerated without evidence of mass, infiltrate or effusion. The cardiomediastinal contours are unremarkable. Old proximal left humeral fracture. Power port overlies the right chest. CT: 1. Multiple tiny noncalcified bilateral pulmonary nodules ranging in size from 4 -[address] of the chest would be helpful for further evaluation if clinically indicated. 2. Uncomplicated colonic diverticulosis. 3. Fat-containing left adrenal nodule measuring 2.6 x 1.8 cm consistent with myelolipoma. 4. Left inguinal right containing only fat. 5. Multiple tiny calcified nonobstructing left renal calculi. 6. Stable right renal cysts. 7. Degenerative changes and scoliosis of the lumbar spine. This patient will need to be admitted to the intensive care unit for further treatment of his hypotension and tachycardia. The etiology of his GI bleed appears to be diverticulosis. 6:20 PM The patient has now had 3 L of fluid and his systolic blood pressure is over 100. Continues to feel well. Critical Care Narrative Aggregate critical care time was 60 minutes. Time to perform other separately billable procedures was not included in the critical care time. My time did not include minutes spent treating any other patients simultaneously or on activities that did not directly contribute to the patient's treatment. The services I provided to this patient were to treat and/or prevent clinically significant deterioration due to shock I provided critical care services requiring my management, as noted below: Chart data review, documentation time, medication orders and management, vital sign assessments/reviewing monitor data, ordering and reviewing lab tests, ordering and interpreting/reviewing x-rays and diagnostic studies, care of the patient and discussion of the patient with the admitting physicians HemaPrompt Point of Care Internal Pos. & Neg. Controls: Passed Fecal Specimen Occult Blood: Positive Sepsis Criteria SIRS Criteria (2 or more): Heart rate over 90 Physician Communication Physician Communication Case discussed with Dr. Urban. He believes that the patient is stable for admission to the hospitalist service with an thread milling machine set up operator consultation. The patient's primary care physician is Tim Saba. The [facility] Hospitalist service will be consult. Diagnosis Primary Impression: Hypotension Qualified Code: I95.89 - Other specified hypotension Additional Impressions: Tachycardia GI bleed Qualified Code: K92.2 - Gastrointestinal hemorrhage, unspecified gastrointestinal hemorrhage type Diverticulosis large intestine w/o perforation or abscess w/bleeding Chest pain Qualified Code: R07.9 - Chest pain, unspecified type Admitting Information Admitting Physician Requests: Admit Condition: Jennifer Rincon MD Mar 08, 2017 16:56
[2017-03-08] MEDS: SODIUM CHLOR 0.9% 1000 ML INJ 1,000 ML IV SCH ×3 (17:12→19:15)
[2017-03-08 17:16] LABS: CHLORIDE 107 MEQ/L (98-107); POTASSIUM 4.2 MEQ/L (3.5-5.1); SODIUM (NA) 140 MEQ/L (136-145)
[2017-03-08 17:20] LABS: ANION GAP 12 MEQ/L (5-15); BICARBONATE 21.4 MEQ/L (21.0-32.0); BLOOD UREA NITROGEN 27 MG/DL (7-18); MAGNESIUM 1.9 MG/DL (1.5-2.5)
[2017-03-08 17:23] LABS: ALT (GPT) 38 U/L (12-78); AST (GOT) 19 U/L (15-37); GLOMERULAR FILTRATION RATE 31 ML/MIN (>89)
[2017-03-08 17:24] LABS: BASOPHIL # 0.2 TH/MM3 (0-0.2); BASOPHIL % 2.2 % (0.0-2.0); EOSINOPHIL # 0.1 TH/MM3 (0-0.4); EOSINOPHIL % 1.4 % (0.0-4.0); HEMATOCRIT 45.8 % (39.0-51.0); LYMPH % 23.6 % (9.0-44.0); LYMPHOCYTE # 2.5 TH/MM3 (1.0-4.8); MEAN CELL VOLUME 88.5 FL (80.0-100.0); MEAN CORPUSCULAR HGB CONC 32.8 % (32.0-36.0); MONO % 8.3 % (0.0-8.0); NEUT % 64.5 % (16.0-70.0); RED BLOOD COUNT 5.18 MIL/MM3 (4.50-5.90); RED CELL DISTRIBUTION WIDTH 15.5 % (11.6-17.2); TOTAL BILIRUBIN ADULT 0.5 MG/DL (0.2-1.0); WHITE BLOOD COUNT 10.7 TH/MM3 (4.0-11.0)
[2017-03-08 17:25] LABS: ALKALINE PHOSPHATASE 61 U/L (45-117)
[2017-03-08 17:26] LABS: APTT (PATIENT) 20.8 SEC (24.3-30.1); HEMO FLAGS AUTO DIFF
[2017-03-08 17:28] LABS: PLATELET COUNT 123 TH/MM3 (150-450)
[2017-03-08 17:29] LABS: CREATINE KINASE 35 U/L (39-308)
[2017-03-08 17:39] LABS: INTERNATIONAL NORMALIZED RATIO 0.9 RATIO; PROTHROMBIN TIME - PATIENT 10.1 SEC (9.8-11.6)
--- NOTE | 2017-03-08 17:44 | RADRPT ---
EXAM DATE/TIME: 03/08/2017 17:12 [facility] COMPARISON: CHEST PA & LAT, October 10, 2014, 2:37. CHEST SINGLE AP, August 05, 2014, 20:12. INDICATIONS : Chest pain. MEDICAL HISTORY : Carcinoma, bladder. Carcinoma, prostatic. Renal calculi. Diabetes. AAA. Atrial fibrillation. SURGICAL HISTORY : Cholecystectomy. Litotripsy, kidney stent placement. Infusaport. Cardiac catherization. ENCOUNTER: Initial ACUITY: 1 day PAIN SCORE: 7/10 LOCATION: Bilateral chest FINDINGS: A single view of the chest demonstrates the lungs to be symmetrically aerated without evidence of mas s, infiltrate or effusion. The cardiomediastinal contours are unremarkable. Old proximal left johnathon l fracture. Power port overlies the right chest. CONCLUSION: No acute disease. David Berger Jr., MD on March 08, 2017 at 17:42 Board Certified Radiologist. This report was verified electronically.
--- NOTE | 2017-03-08 17:52 | RADRPT ---
EXAM DATE/TIME: 03/08/2017 17:11 [facility] COMPARISON: CT ABDOMEN & PELVIS W/O CONTRAST, August 05, 2014, 4:07. CT ABDOMEN & PELVIS W/O CONTRAST, 2016, 18:49. INDICATIONS : Blood in stool. ORAL CONTRAST: No oral contrast ingested. RADIATION DOSE: 24.59 CTDIvol (mGy) MEDICAL HISTORY : Hypertension. Chronic obstructive pulmonary disease. Renal calculi. SURGICAL HISTORY : Cholecystectomy. ENCOUNTER: Initial ACUITY: 1 day PAIN SCALE: 0/10 LOCATION: abdomen/pelvis TECHNIQUE: Volumetric scanning of the abdomen and pelvis was performed. Using automated exposure control and ad justment of the mA and/or kV according to patient size, radiation dose was kept as low as reasonably achievable to obtain optimal diagnostic quality images. DICOM format image data is available electro nically for review and comparison. FINDINGS: LOWER LUNGS: There are multiple tiny noncalcified nodules within the visualized lung bases ranging in size from 4- 6 mm which are indeterminate. CT of the chest would be helpful for further evaluation. LIVER: Homogeneous density without lesion. There is no dilation of the biliary tree. No calcified gallston es. SPLEEN: Normal size without lesion. PANCREAS: Within normal limits. KIDNEYS: Normal in size and shape. There is no hydronephrosis. There are multiple tiny calcified nonobstructi ng left renal calculi. Right renal cysts are stable. ADRENAL GLANDS: There is a fat containing nodule within the left adrenal gland measuring 2.6 x 1.8 cm consistent with myelolipoma. The right adrenal gland is normal. VASCULAR: There is no aortic aneurysm. BOWEL/MESENTERY: Uncomplicated colonic diverticulosis is noted. No acute diverticulitis is noted. ABDOMINAL WALL: Within normal limits. RETROPERITONEUM: There is no lymphadenopathy. BLADDER: No wall thickening or mass. REPRODUCTIVE: Central calcification is noted within the prostate gland. INGUINAL: Left inguinal hernia containing only fat is noted. No inguinal lymphadenopathy is noted. MUSCULOSKELETAL: Degenerative changes and scoliosis of the lumbar spine are stable. CONCLUSION: 1. Multiple tiny noncalcified bilateral pulmonary nodules ranging in size from 4-[address] of the ches t would be helpful for further evaluation if clinically indicated. 2. Uncomplicated colonic diverticulosis. 3. Fat-containing left adrenal nodule measuring 2.6 x 1.8 cm consistent with myelolipoma. 4. Left inguinal right containing only fat. 5. Multiple tiny calcified nonobstructing left renal calculi. 6. Stable right renal cysts. 7. Degenerative changes and scoliosis of the lumbar spine. Alvaro Cali MD on March 08, 2017 at 17:41 Board Certified Radiologist. This report was verified electronically.
[2017-03-08 18:42] LABS: SCAN/DIFF AUTO DIFF CONFIRMED
[2017-03-08] MEDS ORDERED: SENNOSIDES 8.6 MG TAB PO PRN (19:00)
[2017-03-08] MEDS ORDERED: ONDANSETRON HCL 4 MG/2 ML VIAL IVP PRN (19:00)
[2017-03-08] MEDS ORDERED: BISACODYL 10 MG SUPP RECTAL PRN (19:00)
[2017-03-08] MEDS ORDERED: MAGNESIUM HYDROXIDE SUSP 30 ML CUP PO PRN (19:00)
[2017-03-08] MEDS ORDERED: NALOXONE HCL 0.4 MG/ML AMP IV PRN (19:00)
[2017-03-08] MEDS ORDERED: LACTULOSE SYRUP 20 GM/30 ML CUP PO PRN (19:00)
[2017-03-08] MEDS ORDERED: SODIUM CHLORIDE 0.9% FLUSH 10 ML FLUSH IV FLUSH PRN (19:00)
[2017-03-08 21:32] LABS: CREATINE KINASE 31 U/L (39-308)
[2017-03-08] MEDS: PANTOPRAZOLE SODIUM 40 MG VIAL IV PUSH SCH (21:47)
[2017-03-08] MEDS: POTASSIUM CHLORIDE 20 MEQ CONTROLLED RELEASE TAB PO SCH (21:47)
[2017-03-08] MEDS: DOCUSATE SODIUM 50 MG/SENNA 8.6 MG TAB PO SCH (21:47)
[2017-03-08] MEDS: SODIUM CHLOR 0.45% 1000 ML INJ 1,000 ML IV SCH (21:48)
[2017-03-08] MEDS: SODIUM CHLORIDE 0.9% FLUSH 10 ML FLUSH IV FLUSH SCH (21:48)
[2017-03-09] VITALS (20 sets, daily range): BP systolic 111–163; BP diastolic 57–89; PULSE 86–105; RESP 12–26; TEMP 97.7–98.6; O2SAT 93–98
[2017-03-09 01:47] LABS: CREATINE KINASE 33 U/L (39-308)
[2017-03-09 05:14] LABS: POTASSIUM 4.6 MEQ/L (3.5-5.1)
[2017-03-09 05:15] LABS: AUTOMATED NEUTROPHIL # 4.3 TH/MM3 (1.8-7.7); BASOPHIL % 0.5 % (0.0-2.0); EOSINOPHIL # 0.2 TH/MM3 (0-0.4); EOSINOPHIL % 2.4 % (0.0-4.0); HEMATOCRIT 38.2 % (39.0-51.0); HEMO FLAGS DIFF FINAL; LYMPH % 22.5 % (9.0-44.0); LYMPHOCYTE # 1.5 TH/MM3 (1.0-4.8); MEAN CELL VOLUME 87.6 FL (80.0-100.0); MEAN CORPUSCULAR HEMOGLOBIN 29.1 PG (27.0-34.0); MEAN CORPUSCULAR HGB CONC 33.2 % (32.0-36.0); NEUT % 63.6 % (16.0-70.0); PLATELET COUNT 115 TH/MM3 (150-450); RED BLOOD COUNT 4.36 MIL/MM3 (4.50-5.90); RED CELL DISTRIBUTION WIDTH 14.7 % (11.6-17.2); WHITE BLOOD COUNT 6.8 TH/MM3 (4.0-11.0)
[2017-03-09 05:32] LABS: BICARBONATE 25.5 MEQ/L (21.0-32.0); INDIRECT BILIRUBIN 0.4 MG/DL (0.0-0.8); TOTAL BILIRUBIN ADULT 0.5 MG/DL (0.2-1.0)
--- NOTE | 2017-03-09 06:00 | PD.CONS ---
[facility] Service Critical Care Medicine Consult Requested By Dr. Wheeler Reason for Consult hypotension Primary Care Physician Tim Saba DO History of Present Illness This is a 71yM with history of lymphoma s/p chemotherapy 2 weeks ago who presents with acute sudden onset chest pain, diaphoresis, shortness of breath while shopping. He states he had never had that pain before. he states that his mother and grandmother had heart disease and heart attacks, but he does not have any history of heart problems. denies fevers, chills, nausea, vomiting, diarrhea. In the emergency room, he was initially hypotensive which responded to iv fluids. Per the ED, his hemoccult was positive. the patient denies dark tarry stools or bright red blood per rectum. The patient was admitted to the intensive care unit for close observation where he has remained stable overnight. The patient today denies any complaints at all, stating his chest pain completely resolved in the emergency department. he denies shortness of breath. All other review of systems are negative unless otherwise noted. Review of Systems Constitutional: DENIES: Fatigue, Fever, Chills, Dizziness Endocrine: DENIES: Heat/cold intolerance Respiratory: COMPLAINS OF: Shortness of breath, DENIES: Cough, Wheezing, Hemoptysis, Sputum production Cardiovascular: COMPLAINS OF: Chest pain, DENIES: Palpitations, Syncope, Dyspnea on Exertion, PND, Lower Extremity Edema, Orthopnea Gastrointestinal: DENIES: Abdominal pain, Black stools, Bloody stools, Constipation, Diarrhea, Nausea, Vomiting, Difficulty Swallowing Neurologic: DENIES: Headache Past Family Social History Allergies: Coded Allergies: Amoxicillin (Verified Allergy, Severe, Anaphylaxis, 10/02/16) Bactrim (Verified Allergy, Severe, SWELLING, RED FACE, 10/02/16) Contrast Media (Verified Allergy, Severe, SWELLING, RED FACE, 10/02/16) must be premed with benedryl and solumedrol Codeine (Verified Adverse Reaction, Intermediate, NAUSEA, VOMITING, ) Past Medical History Rheumatoid arthritis Anxiety Depression Hypertension Hypercholesterolemia Fibromyalgia GERD Kidney Stones COPD Lymphoma Past Surgical History Cholecystectomy 1989 Lithotripsy tonsillectomy Reported Medications Potassium Chloride ER (Potassium Chloride) 20 Meq Tab 20 Meq PO BID Metformin (Metformin HCl) 500 Mg Tab Unknown Dose PO DAILY With meals Pristiq 24 HR (Desvenlafaxine ER 24 HR) 25 Mg Tab Unknown Dose PO DAILY Lisinopril-Hctz 20-25 Mg Tab Unknown Dose PO DAILY Zetia (Ezetimibe) 10 Mg Tab 10 Mg PO DAILY Active Ordered Medications See MAR Family History mother, maternal grandmother with coronary artery disease. Social History Rare etoh use, former smoker, 5 years ago, denies DOA. Physical Exam Vital Signs Vital Signs Date Time Temp Pulse Resp B/P Pulse Ox O2 Delivery O2 Flow Rate FiO2 03/09/17 05:19 92 18 146/83 03/09/17 04:19 97.8 90 17 122/84 97 03/09/17 04:00 86 03/09/17 03:19 94 18 130/81 98 03/09/17 02:19 100 16 133/81 95 03/09/17 02:00 98 03/09/17 01:19 94 16 121/71 95 03/09/17 00:00 92 03/09/17 00:00 97.8 92 16 114/57 95 03/08/17 23:19 90 20 114/67 93 03/08/17 22:19 104 18 146/87 95 03/08/17 22:19 104 18 146/87 95 03/08/17 21:10 95 Nasal Cannula 2.00 03/08/17 21:00 97 03/08/17 21:00 98.8 105 22 108/89 95 03/08/17 19:20 Nasal Cannula 2 03/08/17 19:19 107 110/65 97 Nasal Cannula 2 03/08/17 18:16 106 20 107/65 96 Nasal Cannula 2 03/08/17 17:51 104 20 105/62 96 Nasal Cannula 2 03/08/17 17:46 97.7 111 20 85/59 98 Room Air 03/08/17 17:05 108 20 85/56 98 Room Air 03/08/17 17:00 98 03/08/17 16:57 98 Nasal Cannula 2 03/08/17 16:45 111 20 87/68 98 Room Air 03/08/17 16:33 97.7 128 20 78/66 98 Physical Exam gen: obese male, lying in bed, no acute distress heent: nc. at. perrl. mmm. neck: no jvd. trachea midline chest: unlabored. equal chest rise. clear to auscultation. on room air cv: slightly tachycardic rate of 101, regular rhythm. sinus by telemetry. normal s1, s2 without appreciable murmurs abd: obese, soft, nontender, nondistended. no guarding. extr: no peripheral edema. distal pulses 2+. bilateral yeast rash in axillae neuro: GCS 15, RASS 0. awake, alert, oriented. no focal deficits. Laboratory Laboratory Tests Test 03/08/17 03/08/17 03/08/17 03/09/17 14:30 17:00 20:30 00:38 White Blood Count 10.7 Red Blood Count 5.18 Hemoglobin 15.0 Hematocrit 45.8 Mean Corpuscular Volume 88.5 Mean Corpuscular Hemoglobin 29.0 Mean Corpuscular Hemoglobin 32.8 Concent Red Cell Distribution Width 15.5 Platelet Count 123 Mean Platelet Volume 8.8 Neutrophils (%) (Auto) 64.5 Lymphocytes (%) (Auto) 23.6 Monocytes (%) (Auto) 8.3 Eosinophils (%) (Auto) 1.4 Basophils (%) (Auto) 2.2 Neutrophils # (Auto) 7.0 Lymphocytes # (Auto) 2.5 Monocytes # (Auto) 0.9 Eosinophils # (Auto) 0.1 Basophils # (Auto) 0.2 CBC Comment AUTO DIFF Differential Comment AUTO DIFF CONFIRMED Prothrombin Time 10.1 Prothromb Time International 0.9 Ratio Activated Partial 20.8 Thromboplast Time D-Dimer Quantitative (PE/DVT) 0.40 Sodium Level 140 Potassium Level 4.2 Chloride Level 107 Carbon Dioxide Level 21.4 Anion Gap 12 Blood Urea Nitrogen 27 Creatinine 2.10 Estimat Glomerular Filtration 31 Rate Random Glucose 167 Calcium Level 9.3 Magnesium Level 1.9 Total Bilirubin 0.5 Aspartate Amino Transf 19 (AST/SGOT) Alanine Aminotransferase 38 (ALT/SGPT) Alkaline Phosphatase 61 Total Creatine Kinase 35 31 33 Troponin I LESS THAN 0.02 LESS THAN 0.02 LESS THAN 0.02 Total Protein 7.6 Albumin 4.0 Blood Type O POSITIVE Antibody Screen NEGATIVE Lactic Acid Level 1.8 Procalcitonin LESS THAN 0.05 Test 03/09/17 04:28 White Blood Count 6.8 Red Blood Count 4.36 Hemoglobin 12.7 Hematocrit 38.2 Mean Corpuscular Volume 87.6 Mean Corpuscular Hemoglobin 29.1 Mean Corpuscular Hemoglobin 33.2 Concent Red Cell Distribution Width 14.7 Platelet Count 115 Mean Platelet Volume 8.3 Neutrophils (%) (Auto) 63.6 Lymphocytes (%) (Auto) 22.5 Monocytes (%) (Auto) 11.0 Eosinophils (%) (Auto) 2.4 Basophils (%) (Auto) 0.5 Neutrophils # (Auto) 4.3 Lymphocytes # (Auto) 1.5 Monocytes # (Auto) 0.8 Eosinophils # (Auto) 0.2 Basophils # (Auto) 0.0 CBC Comment DIFF FINAL Differential Comment Sodium Level 144 Potassium Level 4.6 Chloride Level 112 Carbon Dioxide Level 25.5 Anion Gap 7 Blood Urea Nitrogen 24 Creatinine 1.80 Estimat Glomerular Filtration 37 Rate Random Glucose 116 Calcium Level 7.9 Total Bilirubin 0.5 Direct Bilirubin 0.1 Indirect Bilirubin 0.4 Aspartate Amino Transf 14 (AST/SGOT) Alanine Aminotransferase 28 (ALT/SGPT) Alkaline Phosphatase 43 Total Protein 5.9 Albumin 3.1 Result Diagram: 03/09/178 03/09/17427 Imaging Last Impressions Abdomen/Pelvis CT 03/08/171643 Signed Impressions: Service Date/Time: Wednesday, March 08, 2017 17:11 - CONCLUSION: 1. Multiple tiny noncalcified bilateral pulmonary nodules ranging in size from 4-[address] of the chest would be helpful for further evaluation if clinically indicated. 2. Uncomplicated colonic diverticulosis. 3. Fat-containing left adrenal nodule measuring 2.6 x 1.8 cm consistent with myelolipoma. 4. Left inguinal right containing only fat. 5. Multiple tiny calcified nonobstructing left renal calculi. 6. Stable right renal cysts. 7. Degenerative changes and scoliosis of the lumbar spine. Alvaro Cali MD Chest X-Ray 03/08/17 1635 Signed Impressions: Service Date/Time: Wednesday, March 08, 2017 17:12 - CONCLUSION: No acute disease. David Berger Jr., MD Assessment and Plan Assessment and Plan Assessment: 71yM with history of lymphoma who presents with one acute episode of chest pain and shortness of breath with one episode of hypotension, all that have now resolved. His troponins are negative x 2 so this is unlikely to be cardiac in origin. I performed bedside critical care ultrasound which demonstrated grossly normal biventricular function without pericardial effusion. His procalcitonin is very low, suggesting this is not an infectious etiology. the patient states to me this morning that he wants to go home and feels well and back to baseline. Given his oncologic history, pulmonary emboli could be a source of his transient chest pain, and I think it is reasonable to move forward with CT pulmonary angiogram, although a large hemodynamically significant PE would certainly come with other signs and symptoms, and the patient appears clinically back to baseline. Certainly he can leave the ICU and whatever the etiology of his complaints yesterday, they appear to have resolved. As to the positive Guiac stool, he does have some evidence of diverticulosis by CT abd/pelvis, although he has no history of active bleeding from the GI tract. Recommendations: Chest pain and Shortness of Breath -- CT Pulmonary angiogram -- completely resolved. -- trop negative x 2. -- given his family history of coronary disease, would recommend outpatient cardiology follow-up Hypertension -- given slight elevation of creatinine, would recommend holding lisinopril until Cr back to baseline. Guiac + stool -- would recommend outpatient follow up with [facility] in the axilla -- Nystatin cream Dispo: transfer out of ICU. Critical Care Medicine will sign off. Please re-consult as needed. Code Status Full Code Orlando Reagan MD Mar 09, 2017 06:00
--- NOTE | 2017-03-09 07:47 | PD.CONS ---
HPI Service CV Consult Requested By Reason for Consult chest pain Primary Care Physician Tim Saba DO History of Present Illness Here with HTN and hyperlipidemia admitted for chest pain. He was leaving the [employer] waling to his car when he suddenly developed retrosternal chest pain. It was associated with shortness of breath. It did not radiate. It lasted hours. Cardiac work up here is so far negative. He does not smoke. His mother had cardiac disease. He states he had a stress test long ago. Review of Systems Consitutional: DENIES: Fatigue, Fever, Chills, Weight gain, Weight loss Eyes: DENIES: Amaurosis Fugax, Change in vision HEENT: DENIES: Lightheadedness, Change in hearing Respiratory: DENIES: See HPI, Cough, Snoring, Shortness of breath, Wheezing, Sputum production Cardiovascular: COMPLAINS OF: See HPI Gastrointestinal: DENIES: Nausea, Vomiting, Change in bowel habits, Reflux, Bloody stools, Melena Genitourinary: DENIES: Urinary incontinence, Difficulty voiding Integumentary: DENIES: Rash Neurologic: DENIES: Tingling or numbness, Memory problems, Poor Balance, Stroke symptoms Musculoskeletal: DENIES: Joint pain, Muscle pain, Limited range of motion, Back pain Psychiatric: DENIES: Anxiety, Depression, Sleep disturbances Hematologic: DENIES: Bruising tendencies, Bleeding tendencies Endocrine: DENIES: Weight gain, Weight loss, Thyroid disease Past Family Social History Allergies: Coded Allergies: Amoxicillin (Verified Allergy, Severe, Anaphylaxis, 10/02/16) Bactrim (Verified Allergy, Severe, SWELLING, RED FACE, 10/02/16) Contrast Media (Verified Allergy, Severe, SWELLING, RED FACE, 10/02/16) must be premed with benedryl and solumedrol Codeine (Verified Adverse Reaction, Intermediate, NAUSEA, VOMITING, ) Past Medical History see HPI Rheumatoid arthritis Anxiety Depression Fibromyalgia GERD Kidney Stones COPD Lymphoma Past Surgical History Cholecystectomy 1989 Lithotripsy tonsillectomy Reported Medications Reported Meds & Active Scripts Active Reported Potassium Chloride ER (Potassium Chloride) 20 Meq Tab 20 Meq PO BID Metformin (Metformin HCl) 500 Mg Tab Unknown Dose PO DAILY With meals Pristiq 24 HR (Desvenlafaxine ER 24 HR) 25 Mg Tab Unknown Dose PO DAILY Lisinopril-Hctz 20-25 Mg Tab Unknown Dose PO DAILY Zetia (Ezetimibe) 10 Mg Tab 10 Mg PO DAILY Active Ordered Medications Current Medications Medications (Trade) Dose Ordered Sig/See Route Start Time Stop Time Status Last Admin (Zetia) 10 mg DAILY PO 03/09/17 09:00 Potassium Chloride 20 meq 20 meq BID PO 03/08/17 21:00 03/08/17 21:47 (1/2 NS 1000 ml Inj) 1,000 ml @ 75 mls/hr [id number] IV 03/08/17 18:48 03/08/17 21:48 (NS Flush) 2 ml UNSCH PRN IV FLUSH 03/08/17 19:00 (NS Flush) 2 ml BID IV FLUSH 03/08/17 21:00 03/08/17 21:48 (Zofran Inj) 4 mg Q6H PRN IVP 03/08/17 19:00 (Narcan Inj) 0.4 mg UNSCH PRN IV 03/08/17 19:00 (Lily-Colace) 1 tab BID PO 03/08/17 21:00 03/08/17 21:47 (Milk Of Magnesia Liq) 30 ml Q12H PRN PO 03/08/17 19:00 (Senokot) 17.2 mg Q12H PRN PO 03/08/17 19:00 (Dulcolax Supp) 10 mg DAILY PRN RECTAL 03/08/17 19:00 (Lactulose Liq) 30 ml DAILY PRN PO 03/08/17 19:00 (Protonix Inj) 40 mg Q12H IV PUSH 03/08/17 20:00 03/08/17 21:47 (Mycostatin Powder) 1 applic Q12HR TOPICAL 03/09/17 09:00 Family History see HPI Social History see HPI, occasional EtOH, denies substance abuse Physical Exam Vital Signs Vital Signs Date Time Temp Pulse Resp B/P Pulse Ox O2 Delivery O2 Flow Rate FiO2 03/09/17 06:19 100 15 163/89 97 03/09/17 06:00 89 03/09/17 05:19 92 18 146/83 03/09/17 04:19 97.8 90 17 122/84 97 03/09/17 04:00 86 03/09/17 03:19 94 18 130/81 98 03/09/17 02:19 100 16 133/81 95 03/09/17 02:00 98 03/09/17 01:19 94 16 121/71 95 03/09/17 00:00 92 03/09/17 00:00 97.8 92 16 114/57 95 03/08/17 23:19 90 20 114/67 93 03/08/17 22:19 104 18 146/87 95 03/08/17 22:19 104 18 146/87 95 03/08/17 21:10 95 Nasal Cannula 2.00 03/08/17 21:00 97 03/08/17 21:00 95 Nasal Cannula 2.00 03/08/17 21:00 98.8 105 22 108/89 95 03/08/17 19:20 Nasal Cannula 2 03/08/17 19:19 107 110/65 97 Nasal Cannula 2 03/08/17 18:16 106 20 107/65 96 Nasal Cannula 2 03/08/17 17:51 104 20 105/62 96 Nasal Cannula 2 03/08/17 17:46 97.7 111 20 85/59 98 Room Air 03/08/17 17:05 108 20 85/56 98 Room Air 03/08/17 17:00 98 03/08/17 16:57 98 Nasal Cannula 2 03/08/17 16:45 111 20 87/68 98 Room Air 03/08/17 16:33 97.7 128 20 78/66 98 Physical Exam GENERAL: Well-nourished, well-developed patient in no apparent distress. NECK: No JVD. No carotid bruit. CARDIOVASCULAR: Regular rate and rhythm. S1/S2 no murmur, rub, or gallop. RESPIRATORY: No accessory muscle use. Clear to auscultation. Breath sounds equal bilaterally. GASTROINTESTINAL: Abdomen soft, non-tender, nondistended. MUSCULOSKELETAL: Extremities without clubbing, cyanosis, or edema. Laboratory Laboratory Tests Test 03/08/17 03/08/17 03/08/17 03/09/17 14:30 17:00 20:30 00:38 White Blood Count 10.7 Red Blood Count 5.18 Hemoglobin 15.0 Hematocrit 45.8 Mean Corpuscular Volume 88.5 Mean Corpuscular Hemoglobin 29.0 Mean Corpuscular Hemoglobin 32.8 Concent Red Cell Distribution Width 15.5 Platelet Count 123 Mean Platelet Volume 8.8 Neutrophils (%) (Auto) 64.5 Lymphocytes (%) (Auto) 23.6 Monocytes (%) (Auto) 8.3 Eosinophils (%) (Auto) 1.4 Basophils (%) (Auto) 2.2 Neutrophils # (Auto) 7.0 Lymphocytes # (Auto) 2.5 Monocytes # (Auto) 0.9 Eosinophils # (Auto) 0.1 Basophils # (Auto) 0.2 CBC Comment AUTO DIFF Differential Comment AUTO DIFF CONFIRMED Prothrombin Time 10.1 Prothromb Time International 0.9 Ratio Activated Partial 20.8 Thromboplast Time D-Dimer Quantitative (PE/DVT) 0.40 Sodium Level 140 Potassium Level 4.2 Chloride Level 107 Carbon Dioxide Level 21.4 Anion Gap 12 Blood Urea Nitrogen 27 Creatinine 2.10 Estimat Glomerular Filtration 31 Rate Random Glucose 167 Calcium Level 9.3 Magnesium Level 1.9 Total Bilirubin 0.5 Aspartate Amino Transf 19 (AST/SGOT) Alanine Aminotransferase 38 (ALT/SGPT) Alkaline Phosphatase 61 Total Creatine Kinase 35 31 33 Troponin I LESS THAN 0.02 LESS THAN 0.02 LESS THAN 0.02 Total Protein 7.6 Albumin 4.0 Blood Type O POSITIVE Antibody Screen NEGATIVE Lactic Acid Level 1.8 Procalcitonin LESS THAN 0.05 Test 03/09/17 04:28 White Blood Count 6.8 Red Blood Count 4.36 Hemoglobin 12.7 Hematocrit 38.2 Mean Corpuscular Volume 87.6 Mean Corpuscular Hemoglobin 29.1 Mean Corpuscular Hemoglobin 33.2 Concent Red Cell Distribution Width 14.7 Platelet Count 115 Mean Platelet Volume 8.3 Neutrophils (%) (Auto) 63.6 Lymphocytes (%) (Auto) 22.5 Monocytes (%) (Auto) 11.0 Eosinophils (%) (Auto) 2.4 Basophils (%) (Auto) 0.5 Neutrophils # (Auto) 4.3 Lymphocytes # (Auto) 1.5 Monocytes # (Auto) 0.8 Eosinophils # (Auto) 0.2 Basophils # (Auto) 0.0 CBC Comment DIFF FINAL Differential Comment Sodium Level 144 Potassium Level 4.6 Chloride Level 112 Carbon Dioxide Level 25.5 Anion Gap 7 Blood Urea Nitrogen 24 Creatinine 1.80 Estimat Glomerular Filtration 37 Rate Random Glucose 116 Calcium Level 7.9 Total Bilirubin 0.5 Direct Bilirubin 0.1 Indirect Bilirubin 0.4 Aspartate Amino Transf 14 (AST/SGOT) Alanine Aminotransferase 28 (ALT/SGPT) Alkaline Phosphatase 43 Total Protein 5.9 Albumin 3.1 Result Diagram: 03/09/178 03/09/17427 Assessment and Plan Problem List: (1) Chest pain Assessment and Plan CP - so far cardiac work up is negative we will get a Lexiscan SPECT this morning if that is negative he can be discharged home. HTN - add amlodipine 10 mg daily, avoid KAN-I with renal dysfunction Problem Qualifiers (1) Chest pain: Qualified Code: R07.9 - Chest pain, unspecified type Saul Escoto Mar 09, 2017 07:47
[2017-03-09] MEDS: POTASSIUM CHLORIDE 20 MEQ CONTROLLED RELEASE TAB PO SCH ×2 (08:31→21:01)
[2017-03-09] MEDS: DOCUSATE SODIUM 50 MG/SENNA 8.6 MG TAB PO SCH ×2 (08:31→21:00)
[2017-03-09] MEDS: EZETIMIBE 10 MG TAB PO SCH (08:31)
[2017-03-09] MEDS: PANTOPRAZOLE SODIUM 40 MG VIAL IV PUSH SCH (08:31)
[2017-03-09] MEDS: SODIUM CHLORIDE 0.9% FLUSH 10 ML FLUSH IV FLUSH SCH ×2 (08:32→21:01)
--- NOTE | 2017-03-09 09:07 | MH ---
cc: RASHAD RENE MD DATE OF ADMISSION 03/08/2017 CHIEF COMPLAINT Chest pain HISTORY OF PRESENT ILLNESS This is a 71-year-old male with past medical-surgical history significant for arthritis, hypertension, hyperlipidemia, anxiety, depression, history of kidney stones, gastroesophageal reflux disease, history of COPD, history of lithotripsy in the past, cholecystectomy 1988, kidney stent placement in 1989, he is an ex-smoker, quit five years ago, came to the ER at [facility] complaining of central chest pain which was about 5-6/10 and it was central. No radiation, worse with exertion. The symptoms started while he was shopping for a . He stated the symptoms are spontaneously improving and his chest pain is totally resolved. He is chest pain free since last night 06:00 p.m. He has some shortness of breath and some diaphoresis, but no nausea, other than that, nothing significant. CODI Dunham RN was present in the room during the whole time. PAST MEDICAL/SURGICAL HISTORY As dictated above, as well as a history of diabetes mellitus type 2. SOCIAL HISTORY He is an ex-smoker, quit five years ago. Denies any drug abuse, rarely drinks alcohol. Lives at home. He is retired from law enforcement. FAMILY HISTORY Significant for coronary artery disease. ALLERGIES AMOXICILLIN, BACTRIM, CONTRAST MEDIA AND CODEINE. MEDICATIONS Includes: 1. Potassium chloride 20 mEq p.o. twice a day 2. Metformin 500 mg p.o. daily 3. Pristiq 25 mg p.o. daily 4. Lisinopril/Hydrochlorothiazide 20/25 p.o. daily 5. Zetia 10 mg p.o. daily REVIEW OF SYSTEMS All review of systems are negative at the time of examination. PHYSICAL EXAMINATION ON ADMISSION This is a 71-year-old male laying on the bed not in acute distress. VITAL SIGNS: Temperature 97.8, heart rate 100, respiration 15, blood pressure 163/89, O2 saturation 97% room air. HEENT: Normocephalic, atraumatic. EOMI, PERRL. Oral mucosa moist. NECK: Supple. No visible thyromegaly or neck mass. Trachea is central. CARDIOVASCULAR: Regular rate and rhythm. RESPIRATORY: Respirations clear to auscultation bilaterally. ABDOMEN: Soft, nontender. Bowel sounds audible. EXTREMITIES: No cyanosis or clubbing. Full range of motion of all extremities. NEUROLOGIC: Awake, alert, and oriented x4. No focal deficits. SKIN: Warm and dry. A yeast infection in the axilla. PSYCH: The patient has appropriate mood and affect. LABORATORY DATA Includes CBC totally unremarkable except for an RBC count 4.36 low, hemoglobin 12.7 low, hematocrit 38.2 low, platelet count is low 115. BMP totally unremarkable except for chloride 112 high, BUN 24 high, creatinine 1.80 high, GFR 37 low, glucose high at 116, calcium 7.9 low. LFTs are normal. Troponin-I less than 0.02 x2, total protein 5.9 low albumin 3.1 low, calcitonin 0.05. PT 10.0, 12.1, INR 0.9, APTT 20.8, D-dimer is 0.40. Chest x-ray was done shows nothing acute. CT abdomen and pelvis was done shows multiple tiny noncalcified bilateral pulmonary nodules ranging in size from 4-[address] of the chest would be helpful further evaluation if clinically indicated. Uncomplicated colonic diverticulosis, fat containing left adrenal nodule measuring 2.16-1.8 cm consistent with mild lipoma. Left inguinal and right containing only fat and multiple tiny calcified nonobstructing left renal calculi. Stable right renal cyst, degenerative changes and scoliosis of the lumbar spine. Blood group O+, antibody screen negative. ASSESSMENT/PLAN 1. This is a 71-year male who came to the ER diagnosed with chest pain rule out acute coronary syndrome. Cardiac enzymes are normal. The patient was seen by cardiology getting a stress test. 2. Episodes of hypotension. Critical care was seeing the patient. The patient's hypotension resolved. The patient is getting CT angio of the chest to rule out pulmonary embolism. 3. History of hypertension. Continue home medications and monitor blood pressure. 4. Yeast infection in the axilla. Continue with Nystatin cream. 5. Renal insufficiency. Discontinue lisinopril, started on amlodipine. 6. History of hyperlipidemia. Continue home medication Zetia 10 mg p.o. daily. 7. DVT prophylaxis, CBC prophylaxis, Protonix 40 mg p.o. daily. 8. Low platelet count. 9. Multiple noncalcified pulmonary nodules from 4-6 [address] getting CT angio chest. 10. Uncomplicated colonic diverticulosis. No history of any bleed. 11. Fat containing left adrenal nodule measuring 2.16-1.8 cm consistent with myelolipoma. 12. Multiple tiny calcified nonobstructing renal calculi. 13. Stable right renal cyst. 14. Degenerative changes and scoliosis of the lumbar spine. 15. We are going to manage the patient on a daily basis and make recommendations on a daily basis. Rashad Rene MD EA/ALESHA /8:13 AM /8:44 AM
[2017-03-09] MEDS: SODIUM CHLOR 0.45% 1000 ML INJ 1,000 ML IV SCH ×2 (11:45→21:02)
[2017-03-09] MEDS: NYSTATIN 100,000 U/GM PWD 15 GM BTL TOPICAL SCH ×2 (11:46→21:02)
[2017-03-09] MEDS: PANTOPRAZOLE SOD 40 MG DELAYED RELEASE TAB PO SCH ×2 (11:46→21:02)
[2017-03-09] MEDS ORDERED: REGADENOSON INJ 0.4 MG/5 ML SYR IV ONE (13:41)
--- NOTE | 2017-03-09 17:05 | RADRPT ---
EXAM DATE/TIME: 03/09/2017 13:44 [facility] COMPARISON: No previous studies available for comparison. INDICATIONS : Retrosternal chest pain with dyspnea. Angina. DOSE: 31.3 mCi Tc99m Myoview at stress. 10.1 mCi Tc99m Myoview at rest. 0.4 mg Lexiscan STRESS SYMPTOMS: Chest pressure. EJECTION FRACTION: 48% MEDICAL HISTORY : Hypercholesterolemia. Hypertension. Chronic obstructive pulmonary disease. SURGICAL HISTORY : Tonsillectomy. Cholecystectomy. ENCOUNTER: Initial ACUITY: 1 day PAIN SCALE: 6/10 LOCATION: Retrosternal chest TECHNIQUE: The patient underwent pharmacologic stress with infusion of prescribed dose. Continuous ECG tracing was monitored during stress. Gated SPECT imaging was performed after stress and conventional SPECT i maging was performed at rest. The examination was performed on a SPECT/CT scanner, both attenuation and non-corrected datasets were reviewed. FINDINGS: DISTRIBUTION: The maximum perfused segment at stress is in the anterior wall. PERFUSION STUDY: The pattern of perfusion at stress is within normal limits. GATED STUDY: There is intact wall motion and thickening without hypokinetic or dyskinetic segments. Borderline eje ction fraction CONCLUSION: Borderline EF. No significant fixed or reversible perfusion in amount. RISK CATEGORY: Intermediate (1-3% Annual Mortality Rate) Vlad Elliott MD on March 09, 2017 at 17:01 Board Certified Radiologist. This report was verified electronically.
--- NOTE | 2017-03-09 17:53 | MB ---
cc: LONG HERRERA M.D. DATE OF CONSULTATION 03/09/2017 DATE OF [address] Rashad Diop. REASON FOR REFERRAL Heme-positive stool. HISTORY OF THE PRESENT ILLNESS Thank you for the consultation. A 71-year-old male who was walking in [employer] when he started having chest pain. He came to the hospital via ER with central chest pain about 5-6/10. No radiation. No dyspnea on exertion. And his symptoms completely resolved. He was found to have heme-positive stool on rectal exam. The patient has history of atrial fibrillation but he is not taking any anticoagulation. The patient denied any GI bleed. No nausea no vomiting. No other symptoms. No hematemesis. No rectal bleeding. His last colonoscopy was about 5 years ago. Currently feeling well without chest pain. He has stress tests results still pending. FAMILY HISTORY Significant for coronary artery disease. SOCIAL HISTORY Used to smoke up to 5 years ago. No drug or alcohol. PAST MEDICAL HISTORY Significant for: 1. Hypertension. 2. Hyperlipidemia. 3. Anxiety. 4. Depression. 5. Arthritis. 6. Kidney stone. 7. Reflux symptom. 8. Chronic obstructive pulmonary disease. 9. Cholecystectomy. 10. Kidney stent placement. ALLERGIES MULTIPLE INCLUDING CONTRAST MEDICATIONS, CODEINE, BACTRIM, AMOXICILLIN. MEDICATIONS Reviewed in the chart. REVIEW OF SYSTEMS All 12 point negative except for history of present illness. PHYSICAL EXAMINATION GENERAL: Alert, oriented, in no acute distress. VITAL SIGNS: Stable. HEENT: Pupils are round and reactive to light. NECK: Supple. CHEST: Clear. CARDIOVASCULAR: Regular rate and rhythm at this time. ABDOMEN: Soft, nondistended. Positive bowel sounds. No hepatosplenomegaly. EXTREMITIES: No edema, clubbing or cyanosis. NEUROLOGIC: Alert, oriented, intact. No gross abnormality. No muscular deficit. PSYCHOLOGIC: Appropriate. SKIN: Clear. LABORATORY DATA White count 6.8, hemoglobin 12.7 down from 15 yesterday, platelets 115. INR 0.9. Liver function test normal with AST 14, ALT 28, alk phos 43, albumin 3.1. BUN 24, creatinine 1.8. IMAGING Abdominal CT scan unremarkable for GI abnormality except uncomplicated diverticulosis and left adrenal nodule and renal cyst. ASSESSMENT/PLAN 1. A 71-year-old gentleman who had chest pain before admission, currently without any symptoms. Stress test is still pending. Without any anticoagulation despite his history of A fib. He had mild drop in his hemoglobin could be related to dehydration. He headache hemoccult positive according to the ER. 2. Known history of reflux symptoms and negative colonoscopy 5 years ago. 3. I would recommend doing upper endoscopy and colonoscopy. 4. Take into consideration that his hemoglobin is stable, I would recommend doing this either as an outpatient unless his hemoglobin dropped tomorrow. If his stress test is negative and he was discharged, we will see him in the next few days and arrange for outpatient endoscopy. 5. If he drops his hemoglobin or shows sings of bleeding, we will plan on doing this as an inpatient. This was discussed with the patient and he agreed with the plan. MD PREETI Santo/KK /5:19 PM /5:35 PM
--- NOTE | 2017-03-09 21:15 | EKG ---
Date Performed: 03/08/2017 Time Performed: 16:27:03 PTAGE: 71 years EKG: SINUS TACHYCARDIA INDETERMINATE AXIS MINIMAL ST DEPRESSION ABNORMAL ECG Compared to prior t racing no significant change DOCTOR: Beth Merida Interpretating Date/Time 03/09/2017 21:14:06
[2017-03-10] VITALS: BP 102/59; PULSE 86; RESP 20; TEMP 98.8; O2SAT 98
[2017-03-10 06:17] LABS: BASOPHIL % 0.5 % (0.0-2.0); EOSINOPHIL # 0.2 TH/MM3 (0-0.4); EOSINOPHIL % 2.9 % (0.0-4.0); HEMATOCRIT 38.9 % (39.0-51.0); HEMO FLAGS DIFF FINAL; LYMPH % 21.9 % (9.0-44.0); LYMPHOCYTE # 1.3 TH/MM3 (1.0-4.8); MEAN CORPUSCULAR HEMOGLOBIN 29.8 PG (27.0-34.0); MEAN CORPUSCULAR HGB CONC 34.2 % (32.0-36.0); MONO % 10.1 % (0.0-8.0); NEUT % 64.6 % (16.0-70.0); PLATELET COUNT 115 TH/MM3 (150-450); RED BLOOD COUNT 4.47 MIL/MM3 (4.50-5.90); RED CELL DISTRIBUTION WIDTH 14.6 % (11.6-17.2); WHITE BLOOD COUNT 6.1 TH/MM3 (4.0-11.0)
[2017-03-10 06:35] LABS: CHLORIDE 107 MEQ/L (98-107); POTASSIUM 4.5 MEQ/L (3.5-5.1); SODIUM (NA) 142 MEQ/L (136-145)
[2017-03-10 06:55] LABS: ALKALINE PHOSPHATASE 45 U/L (45-117); ALT (GPT) 28 U/L (12-78); ANION GAP 6 MEQ/L (5-15); AST (GOT) 14 U/L (15-37); BICARBONATE 28.7 MEQ/L (21.0-32.0); BLOOD UREA NITROGEN 21 MG/DL (7-18); GLOMERULAR FILTRATION RATE 43 ML/MIN (>89); TOTAL BILIRUBIN ADULT 0.6 MG/DL (0.2-1.0)
[2017-03-10 08:00] VITALS: O2SAT 95
--- NOTE | 2017-03-10 08:19 | HHI.PR ---
Subjective History of Present Illness Patient deny any complaints..s/p stress test which was negative ok to discharge per cardiology. d/w RN Marquis Review of Systems Constitutional Constitutional: Fatigue Vitals/Results Intake & Output 03/09/17 03/09/17 03/10/17 15:00 23:00 07:00 Intake Total 1391 ml 280 ml Output Total 450 ml Balance 941 ml 280 ml Intake Oral 700 ml 280 ml IV Total 691 ml Output Urine Total 450 ml # Voids 2 1 # Bowel Movements 0 0 Vital Signs Vital Signs Date Time Temp Pulse Resp B/P Pulse Ox O2 Delivery O2 Flow Rate FiO2 03/10/17 00:00 98.8 86 20 102/59 98 03/09/17 22:40 94 Nasal Cannula 2.00 03/09/17 20:00 97.7 105 22 130/85 95 03/09/17 20:00 Nasal Cannula 2.00 03/09/17 18:00 98 03/09/17 16:00 98.6 94 16 146/77 95 03/09/17 16:00 104 03/09/17 15:15 100 03/09/17 12:00 98.5 96 26 111/72 93 03/09/17 12:00 93 03/09/17 10:00 94 CBC/BMP: 03/10/17 0540 03/10/17 0540 Lab Results Laboratory Tests Test 03/10/17 05:40 White Blood Count 6.1 TH/MM3 Red Blood Count 4.47 MIL/MM3 Hemoglobin 13.3 GM/DL Hematocrit 38.9 % Mean Corpuscular Volume 87.0 FL Mean Corpuscular Hemoglobin 29.8 PG Mean Corpuscular Hemoglobin 34.2 % Concent Red Cell Distribution Width 14.6 % Platelet Count 115 TH/MM3 Mean Platelet Volume 8.0 FL Neutrophils (%) (Auto) 64.6 % Lymphocytes (%) (Auto) 21.9 % Monocytes (%) (Auto) 10.1 % Eosinophils (%) (Auto) 2.9 % Basophils (%) (Auto) 0.5 % Neutrophils # (Auto) 4.0 TH/MM3 Lymphocytes # (Auto) 1.3 TH/MM3 Monocytes # (Auto) 0.6 TH/MM3 Eosinophils # (Auto) 0.2 TH/MM3 Basophils # (Auto) 0.0 TH/MM3 CBC Comment DIFF FINAL Differential Comment Sodium Level 142 MEQ/L Potassium Level 4.5 MEQ/L Chloride Level 107 MEQ/L Carbon Dioxide Level 28.7 MEQ/L Anion Gap 6 MEQ/L Blood Urea Nitrogen 21 MG/DL Creatinine 1.60 MG/DL Estimat Glomerular Filtration 43 ML/MIN Rate Random Glucose 127 MG/DL Calcium Level 8.8 MG/DL Total Bilirubin 0.6 MG/DL Aspartate Amino Transf 14 U/L (AST/SGOT) Alanine Aminotransferase 28 U/L (ALT/SGPT) Alkaline Phosphatase 45 U/L Total Protein 6.4 GM/DL Albumin 3.4 GM/DL Physical Exam General General Appearance: Well Developed, Well Nourished, No Acute Distress, Comfortable Eyes Eye Exam: Pupils Equal, Pupils Reactive Throat Throat Exam: Oral Mucosa [place] & Moist, Oral Pharynx Normal Neck Neck Exam: Neck Supple, Trachea Midline Pulmonary Resp Exam: Clear Bilaterally, Breath Sounds Equal, No Distress Cardiology CV Exam: Regular, Normal Sinus Rhythm Gastrointestinal/Abdomen GI Exam: Soft, Non-Tender, Bowel Sounds Present Integumentary Skin Exam: Clear, Warm, Dry, Intact Extremeties Extremities Exam: No Edema Neurologic Neuro Exam: Alert, Awake, Oriented, Speech Clear, Moving All Extremities, No Focal Deficits VTE Prophylaxis VTE Prophylaxis Meds: Heparin PUD Prophylasis PUD Prophylaxis: Protonix Assessment/Plan Assessment/Plan ASSESSMENT/PLAN 1. This is a 71-year male who came to the ER diagnosed with chest pain rule out acute coronary syndrome. Cardiac enzymes are normal. The patient was seen by cardiology s/p a stress test. 2. Episodes of hypotension. resolved.Critical care was seeing the patient. 3. History of hypertension. Continue home medications and monitor blood pressure. 4. Yeast infection in the axilla. Continue with Nystatin cream. 5. Renal insufficiency. Discontinue lisinopril, started on amlodipine. 6. History of hyperlipidemia. Continue home medication Zetia 10 mg p.o. daily. 7. DVT prophylaxis, CBC prophylaxis, Protonix 40 mg p.o. daily. 8. Low platelet count. 9. Multiple noncalcified pulmonary nodules from 4-6 mm. advised to follow up with pulmonary. 10. Uncomplicated colonic diverticulosis. No history of any bleed. 11. Fat containing left adrenal nodule measuring 2.16-1.8 cm consistent with myelolipoma...advised to follow up with PCP. 12. Multiple tiny calcified nonobstructing renal calculi. 13. Stable right renal cyst. 14. Degenerative changes and scoliosis of the lumbar spine. ok to dc home today. f/u with pcp/ pulmonary / cardiology 1 week. condition at discharge good. Activity as tolerated diet cardiac medicine see discharge medicine list. Discussed Condition with: Patient Rashad Diop MD Mar 10, 2017 08:19
[2017-03-10] MEDS: EZETIMIBE 10 MG TAB PO SCH (09:26)
[2017-03-10] MEDS: DOCUSATE SODIUM 50 MG/SENNA 8.6 MG TAB PO SCH (09:26)
[2017-03-10] MEDS: POTASSIUM CHLORIDE 20 MEQ CONTROLLED RELEASE TAB PO SCH (09:27)
[2017-03-10] MEDS: NYSTATIN 100,000 U/GM PWD 15 GM BTL TOPICAL SCH (09:28)
[2017-03-10] MEDS: SODIUM CHLORIDE 0.9% FLUSH 10 ML FLUSH IV FLUSH SCH (09:28)
[2017-03-10 10:09] VITALS: BP 124/90; PULSE 93; RESP 15; TEMP 97.3; O2SAT 95
[2017-03-10] MEDS ORDERED: NYST10007 TOPICAL (10:39)
--- NOTE | 2017-03-10 19:49 | HHI.GIFU ---
Subjective Remarks laying in bed comfortable, no GI symptom Objective Vitals I&O Vital Signs Date Time Temp Pulse Resp B/P Pulse Ox O2 Delivery O2 Flow Rate FiO2 03/10/17 10:09 97.3 93 15 124/90 95 03/10/17 09:42 Room Air 03/10/17 08:00 95 Nasal Cannula 2.00 03/10/17 00:00 98.8 86 20 102/59 98 03/09/17 22:40 94 Nasal Cannula 2.00 03/09/17 20:00 97.7 105 22 130/85 95 03/09/17 20:00 Nasal Cannula 2.00 I/O 03/09/17 03/09/17 03/09/17 03/10/17 03/10/17 03/10/17 07:00 15:00 23:00 07:00 15:00 23:00 Intake Total 1314 ml 1391 ml 280 ml 240 ml Output Total 925 ml 450 ml Balance 389 ml 941 ml 280 ml 240 ml Intake Oral 700 ml 280 ml 240 ml IV Total 716 ml 691 ml Tube Feeding 478 ml Other 120 ml Output Urine Total 925 ml 450 ml # Voids 2 1 # Bowel Movements 0 0 0 Laboratory Laboratory Tests Test 03/10/17 05:40 White Blood Count 6.1 Red Blood Count 4.47 Hemoglobin 13.3 Hematocrit 38.9 Mean Corpuscular Volume 87.0 Mean Corpuscular Hemoglobin 29.8 Mean Corpuscular Hemoglobin 34.2 Concent Red Cell Distribution Width 14.6 Platelet Count 115 Mean Platelet Volume 8.0 Neutrophils (%) (Auto) 64.6 Lymphocytes (%) (Auto) 21.9 Monocytes (%) (Auto) 10.1 Eosinophils (%) (Auto) 2.9 Basophils (%) (Auto) 0.5 Neutrophils # (Auto) 4.0 Lymphocytes # (Auto) 1.3 Monocytes # (Auto) 0.6 Eosinophils # (Auto) 0.2 Basophils # (Auto) 0.0 CBC Comment DIFF FINAL Differential Comment Sodium Level 142 Potassium Level 4.5 Chloride Level 107 Carbon Dioxide Level 28.7 Anion Gap 6 Blood Urea Nitrogen 21 Creatinine 1.60 Estimat Glomerular Filtration 43 Rate Random Glucose 127 Calcium Level 8.8 Total Bilirubin 0.6 Aspartate Amino Transf 14 (AST/SGOT) Alanine Aminotransferase 28 (ALT/SGPT) Alkaline Phosphatase 45 Total Protein 6.4 Albumin 3.4 Physical Exam HEENT: Pupils round and reactive to light; normocephalic; atraumatic; no jaundice. Throat is clear. NECK: Neck is supple, no JVD, no lymphadenopathy. CHEST: Chest is clear to auscultation and percussion. CARDIAC: Regular rate and rhythm with no murmur gallop or rubs. ABDOMEN: Soft, nondistended, nontender; no hepatosplenomegaly; bowel sounds are present in all four quadrants. EXTREMITIES: No clubbing, cyanosis, or edema. SKIN: Normal; no rash; no jaundice. RECONCILIATION SPECIALIST: No focal deficits; alert and oriented times three. Assessment and Plan Plan feels ok, no abdominal pain, no sign of active bleed. HGB stable. we can see patient as outpatient for colon EGD for hem positive stool Irina Welsh MD Mar 10, 2017 19:49
== END 2017-03-10 11:55 | disposition home or self-care (01) | DRG 313 ==
LOC: PHED 16:21 → PHEDA 18:47 → PHICU 21:00 → PH3A 03-09 18:36
PROVIDERS: ADMIT Family Medicine; ATTEND Family Medicine
DX: R07.9 Chest pain, unspecified (principal); I95.9 Hypotension, unspecified; E27.8 Other specified disorders of adrenal gland; J44.9 Chronic obstructive pulmonary disease, unspecified; N28.1 Cyst of kidney, acquired; I48.91 Unspecified atrial fibrillation; E11.9 Type 2 diabetes mellitus without complications; M41.9 Scoliosis, unspecified; I10 Essential (primary) hypertension; B37.9 Candidiasis, unspecified; E78.5 Hyperlipidemia, unspecified; K21.9 Gastro-esophageal reflux disease without esophagitis; K57.30 Diverticulosis of large intestine without perforation or abscess without bleeding; M06.9 Rheumatoid arthritis, unspecified; M79.7 Fibromyalgia; Z85.72 Personal history of non-Hodgkin lymphomas; Z92.21 Personal history of antineoplastic chemotherapy; Z87.891 Personal history of nicotine dependence; Z87.442 Personal history of urinary calculi
CPT/HCPCS: 71010; 74176; 78452; 80048; 80053; 80076; 82550; 83605; 83735; 84145; 84484; 85025; 85379; 85610; 85730; 86850; 86900; 86901; 93005; 93017; 96361; 96374; 96375; A9502; C9113; J1642; J2405; J2785; J7030

== ENCOUNTER 2017-07-15 10:15 | Emergency (ER) | payer MEDICARE, OTHER ==
[~2017-07-15] VITALS: Ht 185.4 cm; Wt 117.4 kg
[~2017-07-15 10:15] MED LIST changes: -CIPR-9 PO; +EZET10 PO; -HYDR-3533 PO; +NYST10007 TOPICAL; +POTA-163 PO; -ZETI10TA5 PO; -ZOFR4TAB PO
[2017-07-15 10:35] VITALS: BP 155/79; PULSE 107; RESP 16; TEMP 98.2; O2SAT 95
[2017-07-15 10:46] LABS: GLUCOSE,URINE 1000 OR GREATER mg/dL (NEG); KETONE, URINE NEG (NEG); NITRITE,URINE NEG (NEG); PH, URINE 5.5 (5.0-8.5)
[2017-07-15 10:47] LABS: BLOOD, URINE TRACE (NEG)
[2017-07-15 10:48] LABS: METHOD OF COLLECTION CLEAN CATCH; URINE COLOR YELLOW (YELLW/STRAW)
[2017-07-15 10:51] LABS: WBC, URINE 15-19 /hpf (0-5)
[2017-07-15 10:52] LABS: COMMENT (UR) CULTURE INDICATED; CULTURE IF INDICATED CULTURE INDICATED; TRANSITIONAL EPI CELLS, URINE 0-5 /hpf
[2017-07-15] MEDS ORDERED: ASPI-516 CHEW (11:55)
[2017-07-15] MEDS ORDERED: PANT40TA3 PO (11:55)
[2017-07-15] MEDS ORDERED: LEVO75TA3 PO (11:55)
[2017-07-15] MEDS ORDERED: NEXI40CA PO (11:55)
[2017-07-15] MEDS ORDERED: SODIUM CHLOR 0.9% 1000 ML INJ 1,000 ML IV SCH (11:56)
[2017-07-15] MEDS ORDERED: SODIUM CHLORIDE 0.9% FLUSH 10 ML FLUSH IV FLUSH PRN (12:00)
[2017-07-15 12:29] VITALS: O2SAT 94
--- NOTE | 2017-07-15 12:30 | RADRPT ---
EXAM DATE/TIME: 07/15/2017 12:07 [facility] COMPARISON: CT ABDOMEN & PELVIS W/O CONTRAST, March 08, 2017, 17:11. INDICATIONS : Low back pain. ORAL CONTRAST: No oral contrast ingested. RADIATION DOSE: 24.35 CTDIvol (mGy) MEDICAL HISTORY : Renal calculi. Gastroesophageal reflux disease. Diabetes mellitus type 2.Hypertension. SURGICAL HISTORY : Cholecystectomy. Lithotripsy. ENCOUNTER: Initial ACUITY: 1 day PAIN SCALE: 10/10 LOCATION: Bilateral low back. TECHNIQUE: Volumetric scanning of the abdomen and pelvis was performed. Using automated exposure control and ad justment of the mA and/or kV according to patient size, radiation dose was kept as low as reasonably achievable to obtain optimal diagnostic quality images. DICOM format image data is available electro nically for review and comparison. FINDINGS: LOWER LUNGS: The visualized lower lungs are clear. LIVER: Homogeneous density without lesion. There is no dilation of the biliary tree. No calcified gallston es. SPLEEN: Granulomas are noted. PANCREAS: Within normal limits. KIDNEYS: Scattered macrocalcifications are noted. Low-density 2.1 severe lesion on the right incompletely moshe luated.. This has remained stable since 10/02/16 ADRENAL GLANDS: Within normal limits. VASCULAR: There is no aortic aneurysm. Moderate vascular calcification is noted. BOWEL/MESENTERY: There is induration and small segment of the descending colon, sigmoid junction at the level of the l eft iliac crest thought to be related to diverticular disease, new from the comparison study. ABDOMINAL WALL: Within normal limits. RETROPERITONEUM: There is no lymphadenopathy. BLADDER: No wall thickening or mass. REPRODUCTIVE: Within normal limits. INGUINAL: There is no lymphadenopathy or hernia. MUSCULOSKELETAL: Moderate degenerative changes are noted. CONCLUSION: Presumed short segment diverticulitis at the level of the left iliac crest without fr ee air or abscess. Duy Rashid MD FACR on July 15, 2017 at 12:25 Board Certified Radiologist. This report was verified electronically.
--- NOTE | 2017-07-15 12:34 | PD ---
HPI Chief Complaint: Complaint Time Seen by Provider: 11:48 Travel History International Travel<30 days: No Contact w/Intl Traveler<30days: No Traveled to known affect area: No History of Present Illness HPI patient is a 71-year-old male presents emergency department for evaluation of low back pain on the left side for the past 24-48 hours. Patient denies any nausea vomiting dysuria blood in the stool diarrhea or constipation or fevers. Patient denies any particular injury. States it does not feel like previous episodes of kidney stones he's had the past. He is a type II diabetic takes metformin, does not check his sugar regularly. States he has not had pain like this in the past. PFSH Past Medical History Hx Anticoagulant Therapy: Yes (asa 81) Arthritis: Yes (RHEUMATOID) Asthma: No Anxiety: Yes Depression: Yes Heart Rhythm Problems: No Cancer: Yes Cardiovascular Problems: Yes (htn on meds) High Cholesterol: Yes Chest Pain: No Congestive Heart Failure: No COPD: No Diabetes: Yes (type 2) Patient Takes Glucophage: Yes Diminished Hearing: No Endocrine: Yes Fibromyalgia: Yes GERD: Yes Genitourinary: Yes (KIDNEY STONES) Hepatitis: No Hiatal Hernia: No Hypertension: Yes Immune Disorder: No Implanted Vascular Access Dvce: No Kidney Stones: No Musculoskeletal: Yes Neurologic: No Psychiatric: Yes Reproductive: No Respiratory: Yes (copd) Immunizations Current: Yes Renal Failure: No Sleep Apnea: No Thyroid Disease: No Past Surgical History Abdominal Surgery: Yes (REBECCA) AICD: No Cholecystectomy: Yes (1988) Ear Surgery: No Endocrine Surgery: No Eye Surgery: No Genitourinary Surgery: Yes (LITHOTRIPSY, SUBCUTANEOUS SURGERY) Gynecologic Surgery: No Joint Replacement: No Neurologic Surgery: No Oral Surgery: No Pacemaker: No Thoracic Surgery: No Tonsillectomy: Yes Other Surgery: Yes (LITHROTRIPSY/KIDNEY STENTS ') Social History Alcohol Use: Yes (RARELY) Tobacco Use: No (quit 5 years ago) Substance Use: No Allergies-Medications (Allergen,Severity, Reaction): Coded Allergies: amoxicillin (Unverified Allergy, Severe, Anaphylaxis, 07/15/17) diatrizoate meglumine (Unverified Allergy, Severe, SWELLING, RED FACE, 07/15/17) must be premed with benedryl and solumedrol gadobenic acid (Unverified Allergy, Severe, SWELLING, RED FACE, 07/15/17) must be premed with benedryl and solumedrol gadodiamide (Unverified Allergy, Severe, SWELLING, RED FACE, 07/15/17) must be premed with benedryl and solumedrol gadoteridol (Unverified Allergy, Severe, SWELLING, RED FACE, 07/15/17) must be premed with benedryl and solumedrol iodixanol (Unverified Allergy, Severe, SWELLING, RED FACE, 07/15/17) must be premed with benedryl and solumedrol iohexol (Unverified Allergy, Severe, SWELLING, RED FACE, 07/15/17) must be premed with benedryl and solumedrol sulfamethoxazole (Unverified Allergy, Severe, SWELLING, RED FACE, 07/15/17) trimethoprim (Unverified Allergy, Severe, SWELLING, RED FACE, 07/15/17) codeine (Unverified Adverse Reaction, Intermediate, NAUSEA, VOMITING, 07/15) Reported Meds & Prescriptions Reported Meds & Active Scripts Active Nystatin Topical (Nystatin) 100,000 unit/gm Cream 1 Applic TOPICAL BID Bentyl (Dicyclomine HCl) 10 Mg Cap 10 Mg PO BID 7 Days Flagyl (Metronidazole) 500 Mg Tab 500 Mg PO BID 7 Days Cipro (Ciprofloxacin HCl) 500 Mg Tab 500 Mg PO BID 7 Days Reported Nexium (Esomeprazole DR) 40 Mg Capdr 40 Mg PO DAILY Pantoprazole (Pantoprazole Sodium) 40 Mg Tab 40 Mg PO DAILY Levothyroxine (Levothyroxine Sodium) 75 Mcg Tab 75 Mcg PO DAILY Aspirin 81 Mg Chew 81 Mg CHEW DAILY Metformin (Metformin HCl) 500 Mg Tab Unknown Dose PO DAILY With meals Lisinopril-Hctz 20-25 Mg Tab Unknown Dose PO DAILY Zetia (Ezetimibe) 10 Mg Tab 10 Mg PO DAILY Review of Systems Except as stated in HPI: all other systems reviewed are Neg Physical Exam Narrative GENERAL: Well-developed well-nourished no obvious distress SKIN: Focused skin assessment warm/dry. HEAD: Atraumatic. Normocephalic. EYES: Pupils equal and round. No scleral icterus. No injection or drainage. ENT: No nasal bleeding or discharge. Mucous membranes pink and moist. NECK: Trachea midline. No JVD. CARDIOVASCULAR: Regular rate and rhythm. No murmur appreciated. RESPIRATORY: No accessory muscle use. Clear to auscultation. Breath sounds equal bilaterally. GASTROINTESTINAL: Abdomen soft, non-tender, nondistended. Hepatic and splenic margins not palpable. Minimal CVA tenderness on the left, negative on the right. Pushing in his left abdomen in the left upper quadrant he states his provokes his pain in his back. There Is no rebound no percussive tenderness. MUSCULOSKELETAL: No obvious deformities. No clubbing. No cyanosis. No edema. No midline CT or L-spine tenderness. NEUROLOGICAL: Awake and alert. No obvious cranial nerve deficits. Motor grossly within normal limits. Normal speech. PSYCHIATRIC: Appropriate mood and affect; insight and judgment normal. Data Data Last Documented VS Vital Signs Date Time Temp Pulse Resp B/P (MAP) Pulse Ox O2 Delivery O2 Flow Rate FiO2 07/15/17 13:27 98 144/70 (94) 97 07/15/17 12:29 Room Air 07/15/17 10:35 98.2 16 Orders Orders Urinalysis - C+S If Indicated (07/15/17 10:34) Urine Culture (07/15/17 10:30) Complete Blood Count With Diff (07/15/17 11:56) Comprehensive Metabolic Panel (07/15/17 11:56) Ct Abd/Pel W/O Iv Contrast (07/15/17 11:56) Iv Access Insert/Monitor (07/15/17 11:56) Ecg Monitoring (07/15/17 11:56) Oximetry (07/15/17 11:56) Sodium Chlor 0.9% 1000 Ml Inj (Ns 1000 M (07/15/17 11:56) Sodium Chloride 0.9% Flush (Ns Flush) (07/15/17 12:00) Ketorolac Inj (Toradol Inj) (07/15/17 13:00) Blood Glucose (07/15/17 11:56) Ed Discharge Order (07/15/17 13:06) Labs Laboratory Tests Test 07/15/17 10:30 07/15/17 12:25 Urine Collection Type CLEAN CATCH Urine Color YELLOW Urine Turbidity CLEAR Urine pH 5.5 Urine Specific [place] 1.022 Urine Protein 30 mg/dL Urine Glucose (UA) 1000 OR GREATER mg/dL Urine Ketones NEG mg/dL Urine Occult Blood TRACE Urine Nitrite NEG Urine Bilirubin NEG Urine Leukocyte Esterase NEG Urine RBC 4-9 /hpf Urine WBC 15-19 /hpf Urine WBC Clumps FEW Urine Squamous Epithelial Cells 6-8 /hpf Urine Transitional Epithelial Cells 0-5 /hpf Microscopic Urinalysis Comment CULTURE INDICATED Urine Collection Time 10:30 White Blood Count 12.8 TH/MM3 Red Blood Count 4.48 MIL/MM3 Hemoglobin 13.4 GM/DL Hematocrit 40.8 % Mean Corpuscular Volume 91.1 FL Mean Corpuscular Hemoglobin 30.0 PG Mean Corpuscular Hemoglobin Concent 32.9 % Red Cell Distribution Width 13.9 % Platelet Count 180 TH/MM3 Mean Platelet Volume 7.9 FL Neutrophils (%) (Auto) 73.7 % Lymphocytes (%) (Auto) 13.5 % Monocytes (%) (Auto) 10.2 % Eosinophils (%) (Auto) 0.8 % Basophils (%) (Auto) 1.8 % Neutrophils # (Auto) 9.5 TH/MM3 Lymphocytes # (Auto) 1.7 TH/MM3 Monocytes # (Auto) 1.3 TH/MM3 Eosinophils # (Auto) 0.1 TH/MM3 Basophils # (Auto) 0.2 TH/MM3 CBC Comment DIFF FINAL Differential Comment Blood Urea Nitrogen 19 MG/DL Creatinine 1.60 MG/DL Random Glucose 215 MG/DL Total Protein 7.3 GM/DL Albumin 3.6 GM/DL Calcium Level 8.9 MG/DL Alkaline Phosphatase 50 U/L Aspartate Amino Transf (AST/SGOT) 11 U/L Alanine Aminotransferase (ALT/SGPT) 35 U/L Total Bilirubin 0.5 MG/DL Sodium Level 141 MEQ/L Potassium Level 3.7 MEQ/L Chloride Level 107 MEQ/L Carbon Dioxide Level 24.4 MEQ/L Anion Gap 10 MEQ/L Estimat Glomerular Filtration Rate 43 ML/[facility] Medical Decision Making Medical Screen Exam Complete: Yes Emergency Medical Condition: Yes Differential Diagnosis Diverticulitis, kidney stone, acute abdomen unlikely, dehydration, gastroenteritis Narrative Course Last 24 hours Impressions Abdomen/Pelvis CT 07/15/17 1156 Signed Impressions: Service Date/Time: Saturday, July 15, 2017 12:07 - CONCLUSION: Presumed short segment diverticulitis at the level of the left iliac crest without free air or abscess. Duy Rashid MD FACR Patient roomed in the emergency department, CT scan results were discussed with the patient was a think explains his symptoms quite well. Pressing on his abdomen he did have some radiation to his back presumably from retroperitoneal stimulation. He looks well labs are otherwise fairly unremarkable except for minimal elevation of white blood cell count. Discussed with him the diagnosis which she's never been diagnosed with before. Recommended symptomatic management presumptive antibiotics and follow up with [facility] [employer] in his primary care physician. He is stable for discharge at this time. Patient did have some white blood cells on his urinalysis, examination of his penis revealed some smegma with uncircumcised penis. We'll prescribe nystatin cream. Diagnosis Primary Impression: Back pain Additional Impression: Diverticulitis Med/Other Pt SpecificInfo: Prescription(s) given Scripts Nystatin Topical (Nystatin Topical) 100,000 unit/gm Cream 1 APPLIC TOPICAL BID for Infection, #15 GM 0 Refills Prov: Alvaro Henao MD 07/15/17 Dicyclomine (Bentyl) 10 Mg Cap 10 MG PO BID for Bowel Management for 7 Days, #14 CAP 0 Refills Prov: Alvaro Henao MD 07/15/17 Metronidazole (Flagyl) 500 Mg Tab 500 MG PO BID for Infection for 7 Days, #14 TAB 0 Refills Prov: Alvaro Henao MD 07/15/17 Ciprofloxacin (Cipro) 500 Mg Tab 500 MG PO BID for Infection for 7 Days, #14 TAB 0 Refills Prov: Alvaro Henao MD 07/15/17 Disposition: 01 DISCHARGE HOME Condition: Stable Alvaro Henao MD Jul 15, 2017 12:34
[2017-07-15 12:35] LABS: AUTOMATED NEUTROPHIL # 9.5 TH/MM3 (1.8-7.7); BASOPHIL # 0.2 TH/MM3 (0-0.2); BASOPHIL % 1.8 % (0.0-2.0); EOSINOPHIL # 0.1 TH/MM3 (0-0.4); EOSINOPHIL % 0.8 % (0.0-4.0); HEMATOCRIT 40.8 % (39.0-51.0); LYMPH % 13.5 % (9.0-44.0); LYMPHOCYTE # 1.7 TH/MM3 (1.0-4.8); MEAN CELL VOLUME 91.1 FL (80.0-100.0); MEAN CORPUSCULAR HGB CONC 32.9 % (32.0-36.0); MONO % 10.2 % (0.0-8.0); NEUT % 73.7 % (16.0-70.0); PLATELET COUNT 180 TH/MM3 (150-450); RED BLOOD COUNT 4.48 MIL/MM3 (4.50-5.90); RED CELL DISTRIBUTION WIDTH 13.9 % (11.6-17.2); WHITE BLOOD COUNT 12.8 TH/MM3 (4.0-11.0)
[2017-07-15 12:44] LABS: HEMO FLAGS DIFF FINAL
[2017-07-15 12:51] LABS: CHLORIDE 107 MEQ/L (98-107); POTASSIUM 3.7 MEQ/L (3.5-5.1); SODIUM (NA) 141 MEQ/L (136-145)
[2017-07-15 12:57] LABS: ANION GAP 10 MEQ/L (5-15); BICARBONATE 24.4 MEQ/L (21.0-32.0); BLOOD UREA NITROGEN 19 MG/DL (7-18)
[2017-07-15 13:00] LABS: ALT (GPT) 35 U/L (12-78); AST (GOT) 11 U/L (15-37); GLOMERULAR FILTRATION RATE 43 ML/MIN (>89)
[2017-07-15] MEDS ORDERED: KETOROLAC TROMETHAMINE 30 MG/ML (IVP) VIAL IVP ONE (13:00)
[2017-07-15 13:01] LABS: TOTAL BILIRUBIN ADULT 0.5 MG/DL (0.2-1.0)
[2017-07-15 13:03] LABS: ALKALINE PHOSPHATASE 50 U/L (45-117)
[2017-07-15] MEDS ORDERED: METR-1 PO (13:06)
[2017-07-15] MEDS ORDERED: CIPR-9 PO (13:06)
[2017-07-15] MEDS ORDERED: DICY10 PO (13:06)
[2017-07-15] MEDS ORDERED: NYST15T TOPICAL (13:12)
[2017-07-15 13:27] VITALS: BP 144/70
== END 2017-07-15 13:42 | disposition home or self-care (01) ==
LOC: PHED 10:15 → PHEFT 13:42
DX: M54.5 Low back pain (principal); K57.92 Diverticulitis of intestine, part unspecified, without perforation or abscess without bleeding; B95.1 Streptococcus, group B, as the cause of diseases classified elsewhere; E11.9 Type 2 diabetes mellitus without complications; I10 Essential (primary) hypertension; E78.00 Pure hypercholesterolemia, unspecified; Z79.84 Long term (current) use of oral hypoglycemic drugs; Z79.82 Long term (current) use of aspirin; Z87.39 Personal history of other diseases of the musculoskeletal system and connective tissue; Z86.59 Personal history of other mental and behavioral disorders; Z86.79 Personal history of other diseases of the circulatory system; Z87.448 Personal history of other diseases of urinary system
CPT/HCPCS: 74176; 80053; 81001; 85025; 86403; 87086; 96374; 99285; J1885; J7030